=== PATIENT | female | born 1955 | race Caucasian/White ===

== ENCOUNTER 2017-01-26 06:31 | Inpatient (IN) ==
--- NOTE | 2017-01-25 21:52 | Discharge Summary ---
<Angelia Stein Alayna - Last Filed: 01/25/17 21:49> Date of Encounter: 01/25/17 - Discharge Diagnosis (1) Arthritis of knee, right Priority: Primary Status: Acute (2) Status post total knee replacement Priority: Primary Status: Acute Qualifiers: Laterality: right Qualified Code(s): Z96.651 - Presence of right artificial knee joint (3) COPD (chronic obstructive pulmonary disease) Priority: Secondary Status: Chronic Qualifiers: COPD type: unspecified COPD Qualified Code(s): J44.9 - Chronic obstructive pulmonary disease, unspecified (4) VIANEY (obstructive sleep apnea) Priority: Secondary Status: Chronic Comments: On CPAP (5) HTN (hypertension) Priority: Secondary Status: Chronic Qualifiers: Hypertension type: essential hypertension Qualified Code(s): I10 - Essential (primary) hypertension (6) DMII (diabetes mellitus, type 2) Priority: Secondary Status: Chronic Qualifiers: Diabetes mellitus complication status: without complication Diabetes mellitus intermediate project manager insulin use: unspecified detention insulin use status Qualified Code(s): E11.9 - Type 2 diabetes mellitus without complications (7) Obesity Priority: Secondary Status: Chronic Qualifiers: Obesity type: due to excess calories Obesity classification: unspecified obesity classification Serious obesity comorbidity presence: unspecified whether serious comorbidity present Qualified Code(s): E66.09 - Other obesity due to excess calories (8) Atrial fibrillation Priority: Secondary Status: Chronic Qualifiers: Atrial fibrillation type: chronic Qualified Code(s): I48.2 - Chronic atrial fibrillation (9) Chronic anticoagulation Priority: Secondary Status: Chronic Comments: Takes Coumadin 5mg daily; held prior to surgery and bridged with Lovenox. Will start Lovenox/Coumadin until PT/INR therapeutic. Following PCP/Coumadin Clinic. - Discharge Medications Prescriptions: Enoxaparin [Lovenox *PHARMACY WT BASED*] 100 mg SQ Q12HR #8 syringe OxyCODONE Immed Rel [Roxicodone 5 MG] 5 mg PO Q6HR PRN #28 tablet PRN Reason: Pain Home Medications: Montelukast [Singulair] 10 mg PO HS 01/01/16 [History] Potassium Chloride [K-Tab ER] 20 meq PO DAILY PRN 01/01/16 [History] Warfarin [Coumadin] 7.5 mg PO DAILY 01/01/16 [History] dilTIAZem HCl [Diltiazem HCl] 120 mg PO TID 01/01/16 [History] metFORMIN [Glucophage] 500 mg PO BID 01/01/16 [History] Albuterol Sulfate [Proair Hfa] 2 puff IH Q4H PRN 06/16/16 [History] Budesonide/Formoterol 160/4.5 [Symbicort 160/4.5] 2 puff IH BIDR 06/16/16 [ History] Enoxaparin [Lovenox *PHARMACY WT BASED*] 100 mg SQ Q12HR #8 syringe 01/25/17 [Rx ] OxyCODONE Immed Rel [Roxicodone 5 MG] 5 mg PO Q6HR PRN #28 tablet 01/25/17 [Rx] Cholecalciferol (Vitamin D3) [Vitamin D3] 5,000 unit PO DAILY 01/26/17 [History] Cyanocobalamin (Vitamin B-12) [Vitamin B12] 1,000 mcg PO DAILY 01/26/17 [History ] Enoxaparin [Lovenox] 40 mg SQ BID 01/26/17 [History] Fluticasone Propionate Nasal [Flonase] 1 spray NS DAILY PRN 01/26/17 [History] Furosemide [Lasix] 40 mg PO BID PRN 01/26/17 [History] Metoprolol XL (24 HR) Succ [Toprol Xl] 50 mg PO BID 01/26/17 [History] Pravastatin Sodium [Pravachol] 40 mg PO DAILY 01/26/17 [History] Sertraline [Zoloft] 100 mg PO DAILY 01/26/17 [History] Allergies/Adverse Reactions: 3 Allergy/AdvReac Type Severity Reaction Status Date / Time Banana Allergy Hives Verified 01/26/17 12:33 peanut Allergy Hives Verified 01/26/17 12:33 bismuth subsalicylate AdvReac Vomiting Verified 01/26/17 12:33 [From Pepto-Bismol] codeine AdvReac Drowsy Verified 01/26/17 12:33 Primary care physician: Milton Rodriguez MD - Patient Status Disposition: Transfer Inpatient Rehab Fac Condition: Good - Discharge Instructions Follow Up With: Milton Rodriguez MD [Primary Care Provider] - - Hospital Course Hospital course: Ms. Hernandez is a 62 year old female - Time Spent with Patient Total time spent providing and/or coordinating discharge services: <RubénSnatos Aguilah - Last Filed: 01/29/17 08:02> Date of Encounter: 01/29/17 Time of Encounter: 08:01 - Discharge Diagnosis (1) Morbid obesity with BMI of 45.0-49.9, adult Priority: Secondary Status: Chronic (2) Arthritis of knee, right Priority: Primary Status: Chronic (3) Status post total knee replacement Priority: Primary Status: Acute Qualifiers: Laterality: right Qualified Code(s): Z96.651 - Presence of right artificial knee joint (4) COPD (chronic obstructive pulmonary disease) Priority: Secondary Status: Chronic Qualifiers: COPD type: unspecified COPD Qualified Code(s): J44.9 - Chronic obstructive pulmonary disease, unspecified (5) VIANEY (obstructive sleep apnea) Priority: Secondary Status: Chronic (6) HTN (hypertension) Priority: Secondary Status: Chronic Qualifiers: Hypertension type: essential hypertension Qualified Code(s): I10 - Essential (primary) hypertension (7) DMII (diabetes mellitus, type 2) Priority: Secondary Status: Chronic Qualifiers: Diabetes mellitus complication status: without complication Diabetes mellitus detention insulin use: unspecified detention insulin use status Qualified Code(s): E11.9 - Type 2 diabetes mellitus without complications (8) Atrial fibrillation Priority: Secondary Status: Chronic Qualifiers: Atrial fibrillation type: chronic Qualified Code(s): I48.2 - Chronic atrial fibrillation (9) Chronic anticoagulation Priority: Secondary Status: Chronic Primary care physician: Milton Rodriguez MD - Patient Status Functional capacity at discharge: uses cane/walker Overall status at discharge: patient is progressing back to baseline - Hospital Course Hospital course: Ms. Hernandez is a 62 year old female Status post right total knee replacement. Patient with an episode of aVR with her atrial fibrillation treated with observation. Patient had other episodes which were treated with observation doing well this morning complaints. Patient will be discharged today to rehabilitation. She received antibiotics physical therapy as per protocol. - Time Spent with Patient Total time spent providing and/or coordinating discharge services:
--- NOTE | 2017-01-26 10:17 | Physician Discharge Referral ---
ExtendedCare Referral Info Transfer To: F Provider in Charge: Provider in Charge after Transfer: PCP Institutional Level of Care: Skilled - Diagnosis (1) Arthritis of knee, right Priority: Primary Status: Acute (2) Status post total knee replacement Priority: Primary Status: Acute (3) COPD (chronic obstructive pulmonary disease) Priority: Secondary Status: Chronic (4) VIANEY (obstructive sleep apnea) Priority: Secondary Status: Chronic (5) HTN (hypertension) Priority: Secondary Status: Chronic (6) DMII (diabetes mellitus, type 2) Priority: Secondary Status: Chronic (7) Obesity Priority: Secondary Status: Chronic (8) Atrial fibrillation Priority: Secondary Status: Chronic (9) Chronic anticoagulation Priority: Secondary Status: Chronic Expected Duration of Placement: < 30 days Prognosis: Good Aware of Diagnosis: Patient Aware of Prognosis: Patient - Transfer Medications Prescriptions: OxyCODONE Immed Rel [Roxicodone 5 MG] 5 mg PO Q6HR PRN #28 tablet PRN Reason: Pain Enoxaparin [Lovenox *PHARMACY WT BASED*] 100 mg SQ Q12HR #8 syringe Home Medications: Albuterol Sulfate [Albuterol Inhaler] 2 puff IH Q4H PRN 01/01/16 [History] Montelukast [Singulair] 10 mg PO HS 01/01/16 [History] Potassium Chloride [K-Tab ER] 20 meq PO DAILY PRN 01/01/16 [History] Warfarin [Coumadin] 7 mg PO WE 01/01/16 [History] Warfarin [Coumadin] 7.5 mg PO SUMOTUTHFRSA 01/01/16 [History] dilTIAZem HCl [Diltiazem HCl] 120 mg PO TID 01/01/16 [History] metFORMIN [Glucophage] 500 mg PO BID 01/01/16 [History] Gabapentin [Neurontin] 600 mg PO TID 01/15/16 [History] Proair Hfa 06/16/16 [History] Promethazine/Dextromethorphan [Promethazine-Dm Syrup] 5 ml PO Q4H PRN #120 ml [Rx] Symbicort 160/4.5 06/16/16 [History] Mupirocin [Bactroban Oint] 1 appl TP BID #1 tube 10/23/16 [Rx] Nystatin OINT [Mycostatin] 1 appl TP BID #30 g 10/23/16 [Rx] Enoxaparin [Lovenox *PHARMACY WT BASED*] 100 mg SQ Q12HR #8 syringe 01/25/17 [Rx ] OxyCODONE Immed Rel [Roxicodone 5 MG] 5 mg PO Q6HR PRN #28 tablet 01/25/17 [Rx] Allergies/Adverse Reactions: 3 Allergy/AdvReac Type Severity Reaction Status Date / Time Banana Allergy Hives Verified 01/15/16 13:45 peanut Allergy Hives Verified 01/15/16 13:45 bismuth subsalicylate AdvReac Vomiting Verified 01/15/16 13:45 [From Pepto-Bismol] codeine AdvReac Drowsy Verified 01/15/16 13:45 - Respiratory Orders Other (CPAP at night), None Smoking Cessation: Smoking cessation has been advised. For more information, call the [facility] [employer] Quit Line at 2-935-UEHU-NOW. - Lab Orders Lab Orders: Other (include drug levels w/frequency) (PT/INR every 3 days to bridge back to Coumadin - Lovenox RX printed - to be given every 12 hours until PT/INR therapeutic 2-3.) - Ancillary Orders May use pressure relief devices daily prn, May go on JAH w/family/respon alliance party w /meds at nurse discretion PRN, May consult with Dentist, Pulverizer Feeder, Pinking Sewing Machine Operator PRN - Mobility Orders Chair, Ambulate - Rehabiliation Orders Rehab Potential: Good Rehab Orders: ROM Exercises, Evaluation for Physical Therapy, Evaluation for Occupational Therapy - Treatments Skin tear care topically daily PRN per policy List/Other: Opsite placed. Keep dressing intact until first follow up appointment. If > 50% saturated,notify offfice, remove dressing and place appropriate dressing back in place. Dressing is water resistant, not water-proof. OK to shower, but do not get dressing wet. Shan in place, to be removed at POD#14-16. PT/OT. WBAT to affected extremity. Follow Total Knee Precautions x 6 weeks. Stay in brace at night only. Plan to discontinue brace after first post- operative appointment. ICE and elevate extremity frequently throughout the day. Encourage ambulation exercises. Incentive Spirometer 10x/hour x 1 week. Bridge back to Coumadin - Repeat INR every 3 days. CPAP at night for VIANEY - Diet Orders Regular CERTIFICATION: I certify that the transfer of the above named patient to an Extended Care Facility is necessary for the continuing treatment of the diagnosis listed. The above information is true and accurate reflection of patient's current condition. Confidential - Redisclosure prohibited without a patient's written consent.
--- NOTE | 2017-01-26 11:57 | History & Physical Report ---
Date of Encounter: 01/26/17 Time of Encounter: 11:56 24 Hour HP Update - Instructions Instructions: If the History and Physical is less than 30 days old and was completed prior to A.M. admission and or procedure and has NOT been updated on calendar day of procedure please complete this update prior to performing procedure. - Update Patient reports changes in Medical Condition: No Changes in examination, assessment, or condition: No Changes in Medication: No Preop tests/diagnostics Reviewed: Yes Surgery Remains Indicated: Yes Consent for Planned Operative Procedure(s) Verified: Yes - Pre-Operative Checklist Preoperative Checklist Indicated: No Prophylactic Antibiotic Ordered: Yes Is VTE Prophylaxis Indicated?: Yes
[2017-01-26] MEDS ORDERED: Ringers Solution, Lactated 1,000 ML IVC SCH ×3 (12:15→20:35)
[2017-01-26] MEDS ORDERED: CeFAZolin Pre 3,000 MG/100 ML 3,000 MG/100 ML BAG IVPB ONE (12:17)
[2017-01-26] MEDS ORDERED: Albuterol 2.5 MG/3 ML NEBULIZER IH ONE ×2 (12:17→16:37)
--- NOTE | 2017-01-26 15:00 | Anesthesia Evaluation PreOp ---
Date of Encounter: 01/26/17 Time of Encounter: 14:57 - Past History Planned Operation: Right Total Knee Cardiac History: HTN, Hyperlipidemia, Arrhythmia (AFib - stopped coumadin 2016), Other (CAD) Pulmonary History: Former smoker (quit 8 Years ago), Asthma, COPD (not on home O2) COMMUNICATIONS PROFESSIONAL History: Denies Any Significant HX Other Medical History: Diabetes Type II, Other (Morbid Obesity BMI-46.3) Anesthesia History: No Prior Anesthetic Complications, Past Anesthesia (Left Ulnar Nerve Decompression, Left Endo CTR) : No Alcohol Use: none Drug use: none Medications and Allergies Montelukast [Singulair] 10 mg PO HS 01/01/16 [History] Potassium Chloride [K-Tab ER] 20 meq PO DAILY PRN 01/01/16 [History] Warfarin [Coumadin] 7.5 mg PO DAILY 01/01/16 [History] dilTIAZem HCl [Diltiazem HCl] 120 mg PO TID 01/01/16 [History] metFORMIN [Glucophage] 500 mg PO BID 01/01/16 [History] Albuterol Sulfate [Proair Hfa] 2 puff IH Q4H PRN 06/16/16 [History] Budesonide/Formoterol 160/4.5 [Symbicort 160/4.5] 2 puff IH BIDR 06/16/16 [ History] Enoxaparin [Lovenox *PHARMACY WT BASED*] 100 mg SQ Q12HR #8 syringe 01/25/17 [Rx ] OxyCODONE Immed Rel [Roxicodone 5 MG] 5 mg PO Q6HR PRN #28 tablet 01/25/17 [Rx] Cholecalciferol (Vitamin D3) [Vitamin D3] 5,000 unit PO DAILY 01/26/17 [History] Cyanocobalamin (Vitamin B-12) [Vitamin B12] 1,000 mcg PO DAILY 01/26/17 [History ] Enoxaparin [Lovenox] 40 mg SQ BID 01/26/17 [History] Fluticasone Propionate Nasal [Flonase] 1 spray NS DAILY PRN 01/26/17 [History] Furosemide [Lasix] 40 mg PO BID PRN 01/26/17 [History] Metoprolol XL (24 HR) Succ [Toprol Xl] 50 mg PO BID 01/26/17 [History] Pravastatin Sodium [Pravachol] 40 mg PO DAILY 01/26/17 [History] Sertraline [Zoloft] 100 mg PO DAILY 01/26/17 [History] 3 Allergy/AdvReac Type Severity Reaction Status Date / Time Banana Allergy Hives Verified 01/26/17 12:33 peanut Allergy Hives Verified 01/26/17 12:33 bismuth subsalicylate AdvReac Vomiting Verified 01/26/17 12:33 [From Pepto-Bismol] codeine AdvReac Drowsy Verified 01/26/17 12:33 - Meds/Allergy Pre-op Review Medications Reviewed: Yes Allergies Reviewed: Yes Beta Blockers on Current Med List: Yes If Beta Blockers taken, Date/Time (Last Dose taken): 06:30 01/26/2017 Anesthesia Results - Labs Echo with Imaging Enhancement Agent Name: Cleo Hernandez Date of Study: 04/25/2015 Impressions: Atrial fibrillation. LVEF 55%. Grossly normal left ventricular structure and function. Indeterminate diastolic function. Normal right ventricular structure and function. Moderate dilated left atrium. Mild to moderately dilated right atrium. No evidence of pulmonary hypertension. RVSP was not well obtained. Anesthesia Exam O2 Sat Height 1.63 m Height 1.63 m Height 1.63 m Weight 122.47 kg Weight 122.47 kg Weight 122.47 kg O2 Sat by Pulse Oximetry 96 Vital Signs Temp Pulse Resp BP Pulse Ox 98.1 F 110 18 149/100 96 01/26/17 12:15 01/26/17 12:15 01/26/17 12:15 01/26/17 12:15 01/26/17 12:15 Vital Signs/O2 Sat, Most Current Temp Pulse Resp BP Pulse Ox 98.1 F 67 22 133/67 94 01/26/17 12:15 01/26/17 15:10 01/26/17 15:10 01/26/17 15:10 01/26/17 15:10 Blood glucose: 145 Height: 5'4'' Weight: 270# NPO (# of Hours): pt at @ 09:00 Delay until 17:00 - HEENT Pupil (Motor): Pupils equal, EOMI Mallampati: II Teeth: Missing Denture Type: Upper: Complete Oral Opening: Greater than 3 - COMMUNICATIONS PROFESSIONAL LOC: Oriented COMMUNICATIONS PROFESSIONAL Motor: Normal RUE, Normal LUE, Normal RLE, Normal LLE, Normal Face COMMUNICATIONS PROFESSIONAL Sensory: Normal: RUE, LUE, RLE, LLE, Face - Cardiac Rhythm: Irregular Murmur: None JVD: No Carotid Bruit: No - Pulmonary Breath Sounds: bilateral Clear Respiratory Effort: Symmetrical Anesthesia Assess/Plan ASA Score: 3 Modified Jal Scale for Level of Consciousness: Cooperative, oriented, and tranquil Anesthetic Plan: General, Regional (Right Fem. Nerve Block) Autologous Blood: Yes Monitoring Plan: Standard Monitors Recovery Plan: PACU
[2017-01-26] MEDS ORDERED: *HR* FentaNYL (PF) 100 MCG/2 ML VIAL ONE (16:23)
[2017-01-26] MEDS ORDERED: *HR* Midazolam HCl 2 MG/2 ML VIAL ONE ×3 (16:23→19:37)
[2017-01-26] MEDS ORDERED: *HR* Propofol 200 MG/20 ML VIAL IVP ONE (16:24)
[2017-01-26] MEDS ORDERED: Lidocaine -MPF 2% 2 ML VIAL ONE (16:25)
[2017-01-26] MEDS ORDERED: Lidocaine -MPF 4% 5 ML AMPUL ONE (16:26)
[2017-01-26] MEDS ORDERED: ROPIVACAINE HCL/PF 0.5% 30 ML VIAL ONE (16:28)
[2017-01-26] MEDS ORDERED: Bupivacaine/Clonidine Syringe 1 EACH SYRINGE ONE (16:28)
[2017-01-26] MEDS ORDERED: Ethanol\\Acetic Acid\\Na Ace\\Ben 1,000 ML IRRIG.SOLN IR ONE (16:30)
[2017-01-26] MEDS ORDERED: Ondansetron 4 MG/2 ML VIAL IVP ONE (16:37)
[2017-01-26] MEDS ORDERED: *HR* Labetalol 20 MG/4 ML SYRINGE IVP PRN (16:37)
[2017-01-26] MEDS ORDERED: *HR* Meperidine 25 MG/ML SYRINGE IVP PRN (16:37)
[2017-01-26] MEDS ORDERED: Naloxone 0.4 MG/ML INJ IVP PRN ×2 (16:37→20:35)
--- NOTE | 2017-01-26 17:00 | Anesthesia Procedures ---
Date of Encounter: 01/26/17 Time of Encounter: 16:58 Procedures: Anesthesia - Nerve Block Procedure Date: 01/26/17 Time: 16:58 Pre-op Diagnosis: right knee oa Surgical Procedure: right tka Checklist: Correct Patient Identifier, Correct procedure, History checked Correct side: Right Blood Thinner: No Monitor Applied: EKG, BP, Pulse Oximetry Supplemental Oxygen via Nasal Cannula (L/min): 2 Sedation: Versed (mg): 4 Sedation: Fentanyl (mcg): 100 Indication: Post Op Analgesia (request per dr payne for post op pain control) Pre-op Neuro Deficits: No Block Type: Femoral, Other (ipack) Catheter placed: No Sterile Technique: Yes Ultrasound used: Yes Anatomy identified: Yes Visual spread of Local: Yes Neuro Stimulation: Yes Nerve Stimulator Range: >0.4 - 0.6 mA Blood on Needle Aspiration: No Smooth Injection of Local: Yes Pain with Injection of Local: No Prep: Chlorhexadine Needle: 22 x 50 mm Stimuplex Local: 0.25% Bupivicaine w/Clonidine 20 mcg/cc (femoral), Ropivacaine (ipack) Volume (cc): 30 Number of Attempts: 1 Complications: None/effective block Vitals: Vital Signs/O2 Sat/Glucose, Most Current Pulse Resp BP Pulse Ox 01/26/17 16:42 119 18 149/123 99 01/26/17 15:10 67 22 133/67 94
[2017-01-26] MEDS ORDERED: Ondansetron 4 MG/2 ML VIAL ONE (17:30)
[2017-01-26] MEDS ORDERED: Dexamethasone 4 MG/ML VIAL ONE (17:30)
[2017-01-26] MEDS ORDERED: *HR* HYDROmorphone 2 MG/ML SYRINGE ONE (17:36)
[2017-01-26] MEDS ORDERED: *HR* Enoxaparin 30 MG/0.3 ML SYRINGE SQ SCH (18:00)
--- NOTE | 2017-01-26 18:04 | Orthopedic Operative Note ---
Date of procedure: 01/26/17 Pre-op diagnosis: Right knee arthritis Post-op diagnosis: same Procedure: Procedure: Right Total knee replacement Estimated blood loss: 200 cc Hardware: Metal and polyethylene replacement. Arthrex Femur: 4 Tibia: 4 PS insert: 18 Patella: 37 Exam Under anesthesia: Full flexion and extension, no instability Procedural Notes: Grade 4 arthritic changes all 3 compartments. Operative procedure: The patient was brought to the operating room and placed on the operating room table. After general anesthesia was administered the operative knee was examined. Findings were noted in the exam under anesthesia. The operative extremity was prepped and draped in sterile surgical fashion. The patient received IV antibiotics prior to skin incision. A standard midline incision was made centered over the patella. The incision was made through the skin and subcutaneous tissue. A medial parapatellar tendon approach was performed. Care was taken to preserve tissue along the medial aspect of the patella. And to protect the patella tendon. The deep MCL was released off the medial tibia. The infra patella fat pad was excised. Knee was brought into flexion. Patient noted to have grade 4 arthritic changes all 3 compartments. The entry hole was made for the intramedullary femoral guide. The guide was seated in 6 degrees of valgus. Anterior cut was made followed by the distal cut. The ACL the PCL the medial and the lateral menisci were excised. The tibia was subluxed forward. The entry hole was made for the intramedullary tibial guide. Guide was seated to resect 2 mm off the more abnormal side. The knee was brought into flexion the distal femur was sized to a 4. The femoral guide was seated, the anterior cut was made followed by the posterior condylar cut, followed by the chamfer cuts. The finishing guide was seated the box cut was made and the lug holes were drilled. The tibia was sized to a 4, the tibial tray was seated and prepared with the large drill followed by the fin cutter. Trial reduction revealed full extension no varus valgus instability with the appropriate 18 PS Sosa. The patella was everted and cut was made at the level of the insertion of the quadriceps and patella tendon. The patella was sized 37 the guide was seated and the lug holes are drilled. Trial reduction revealed excellent patella tracking. All trial components were removed all bony surfaces were irrigated. The tibia was cemented first followed by the femur. The 18 PS Sosa was seated and the knee was brought into full extension. The patella was cemented and held in place with the patellar holding clamp. After the cement had hardened, the knee sat for 2 minutes with a Betadine saline solution. The PA closed the knee. The knee was then irrigated out with 2 L of pulse irrigation. The extensor mechanism was closed with #2 FiberWire suture and #2 PDS suture. The subcutaneous tissue was then irrigated and closed deep with #1 PDS suture superficially with 0 PDS suture and skin was closed with skin alethea. The patient was then placed in a sterile dressing and a postoperative brace extubated and transferred to recovery room in stable condition. Anesthesia: LURDES Surgeon: Santos [place] Condition: stable Disposition: PACU
[2017-01-26] MEDS: *HR* HYDROmorphone (PF) 1 MG/ML SYRINGE IVP PRN ×2 (18:49→18:55)
[2017-01-26 19:07] LABS: Hematocrit 38.6 % (35.3-44.9)
[2017-01-26 19:12] LABS: INR 1.2; Prothrombin Time 12.7 Seconds (9.4-12.1)
[2017-01-26] MEDS ORDERED: *HR* Midazolam HCl 2 MG/2 ML VIAL IVP ONE (19:55)
--- NOTE | 2017-01-26 20:02 | Anesthesia Evaluation Post Op ---
Date of Encounter: 01/26/17 Time of Encounter: 19:59 - Vital Signs Vital Signs: Vital Signs/O2 Sat, Most Current Temp Pulse Resp BP Pulse Ox 98.6 F 106 16 110/91 96 01/26/17 19:33 01/26/17 19:53 01/26/17 19:53 01/26/17 19:53 01/26/17 19:53 - Lungs Lungs: Clear Ascult./Percussion - Airway Airway: Non-obstructed - Cardiovascular Irregular Rate (atrial fib, same as preop) - Mental Status Mental Status: Alert & Oriented, Answers Appropriately - Pain Pain Scale: 3 (dilaudid 1mg) Pain Scale used: Numeric (1 - 10) - Nausea Vomiting Nausea Vomiting: Not Present - Hydration Hydration: Ice chips Notes: 01/26/17 19:59 c/o of numb throat, likely from lta used during intubation, VSS othewise, - Discharge PostOp Status: Transfer Patient to floor (VSS, awake, stable)
[2017-01-26] MEDS ORDERED: Sennosides 8.6 MG TABLET PO PRN (20:35)
[2017-01-26] MEDS ORDERED: Furosemide 40 MG TABLET PO PRN (20:35)
[2017-01-26] MEDS ORDERED: Dextrose Gel 15 GM PO PRN ×2 (20:35)
[2017-01-26] MEDS ORDERED: Temazepam 15 MG CAPSULE PO PRN (20:35)
[2017-01-26] MEDS ORDERED: *HR* OxyCODONE Immed Rel 5 MG TABLET PO PRN (20:35)
[2017-01-26] MEDS ORDERED: D5% in Water 1,000 ML IVC PRN (20:35)
[2017-01-26] MEDS ORDERED: Fluticasone Propionate Nasal 50 MCG/SPRAY BOTTLE NS PRN (20:35)
[2017-01-26] MEDS ORDERED: Ondansetron 4 MG/2 ML VIAL IVP PRN (20:35)
[2017-01-26] MEDS ORDERED: *HR* Dextrose 50 % in Water (Syg) 50 ML SYRINGE IVP PRN (20:35)
[2017-01-26] MEDS ORDERED: MOM Conc 10 ML UD.LIQ PO PRN (20:35)
[2017-01-26] MEDS: *HR* Warfarin 7.5 MG TABLET PO SCH (21:28)
[2017-01-26] MEDS: Metoprolol XL (24 HR) Succ 50 MG TAB.ER.24H PO SCH (21:36)
[2017-01-26] MEDS: *HR* Metformin 500 MG TABLET PO SCH (21:37)
[2017-01-26] MEDS: *HR* OxyCODONE Immed Rel 5 MG TABLET PO PRN (21:37)
[2017-01-26] MEDS: Insulin LISPRO 300 UNITS/3 ML VIAL SQ SCH ×2 (21:38)
[2017-01-26] MEDS: Budesonide/Formoterol 160/4.5 MDI IH SCH (21:55)
[2017-01-27] MEDS: ceFAZolin 2,000 MG in D5% in Water 100 ML IVPB SCH ×2 (00:35→09:00)
[2017-01-27] MEDS: *HR* HYDROmorphone (PF) 1 MG/ML SYRINGE IVP PRN ×5 (00:44→21:24)
[2017-01-27] MEDS: *HR* OxyCODONE Immed Rel 5 MG TABLET PO PRN ×3 (03:50→23:31)
[2017-01-27] MEDS: *HR* Enoxaparin 30 MG/0.3 ML SYRINGE SQ SCH ×2 (06:20→16:44)
--- NOTE | 2017-01-27 06:38 | Orthopedics Progress Note ---
Date of Encounter: 01/27/17 Time of Encounter: 06:38 - Assessment and Plan (1) Morbid obesity with BMI of 45.0-49.9, adult Current Visit: Yes Status: Chronic (2) Arthritis of knee, right Current Visit: No Status: Chronic (3) Status post total knee replacement Current Visit: No Status: Acute Qualifiers: Laterality: right Qualified Code(s): Z96.651 - Presence of right artificial knee joint (4) COPD (chronic obstructive pulmonary disease) Current Visit: No Status: Chronic Qualifiers: COPD type: unspecified COPD Qualified Code(s): J44.9 - Chronic obstructive pulmonary disease, unspecified (5) VIANEY (obstructive sleep apnea) Current Visit: No Status: Chronic (6) HTN (hypertension) Current Visit: No Status: Chronic Qualifiers: Hypertension type: essential hypertension Qualified Code(s): I10 - Essential (primary) hypertension (7) DMII (diabetes mellitus, type 2) Current Visit: No Status: Chronic Qualifiers: Diabetes mellitus complication status: without complication Diabetes mellitus [facility]p insulin use: unspecified termination clerk insulin use status Qualified Code(s): E11.9 - Type 2 diabetes mellitus without complications (8) Atrial fibrillation Current Visit: No Status: Chronic Qualifiers: Atrial fibrillation type: chronic Qualified Code(s): I48.2 - Chronic atrial fibrillation (9) Chronic anticoagulation Current Visit: No Status: Chronic Subjective Interval history: Patient was seen this morning doing well without complaints. Patient with episode of atrial fibrillation with RVR asymptomatic we will continue to monitor Afebrile vital signs stable. Operative extremity: Neurovascularly intact Dressing clean dry and intact Calves nontender Assessment and plan: Continue with postoperative care Hematocrit 38 Objective Vital signs: Vital Signs Temp Pulse Resp BP Pulse Ox 01/27/17 04:29 98.3 F 125 18 102/71 99 01/27/17 00:49 125/82 01/26/17 23:16 98 F 115 16 95/67 98 01/26/17 22:12 98 F 104 16 107/59 96 01/26/17 22:01 16 96 01/26/17 21:45 97.6 F 105 16 117/84 97 01/26/17 20:58 98.4 F 113 16 122/74 93 01/26/17 20:32 98.2 F 102 15 125/69 95 01/26/17 20:03 98.6 F 121 16 105/89 95 01/26/17 19:53 106 16 110/91 96 01/26/17 19:43 121 20 120/80 93 01/26/17 19:33 98.6 F 117 20 115/83 96 01/26/17 19:23 132 14 131/54 94 01/26/17 19:13 136 20 126/73 96 01/26/17 19:03 98.9 F 105 12 119/82 94 01/26/17 18:53 112 14 117/85 96 01/26/17 18:43 136 16 118/79 95 01/26/17 18:33 99.2 F 113 18 127/71 98 01/26/17 17:15 98 18 115/78 98 01/26/17 17:00 96 18 137/96 96 01/26/17 16:42 119 18 149/123 99 01/26/17 15:10 67 22 133/67 94 01/26/17 12:15 98.1 F 110 18 149/100 96 Intake and Output 01/26/17 01/26/17 01/27/17 15:59 23:59 07:59 Intake Total 100 / 100 100 / 100 Output Total 200 / 200 200 / 200 Balance -100 / -100 -100 / -100 Intake: IV Fluids 100 / 100 100 / 100 Ancef Premix 3,000 MG/100 ML 3, 100 / 100 000 mg In 100 ml @ 200 mls/hr IVPB PREOP ONE Rx#:[id number] Ancef 2,000 MG In Dextrose 5% 100 / 100 100 ML @ 200 mls/hr IVPB Q8H [facility] Rx#:[id number] Output: Urine 0 / 0 200 / 200 Estimated Blood Loss 200 / 200 Other: Weight 122.47 kg 123.377 kg Blood Glucose* 145 212 Patient Weight 01/27/17 23:59 Weight 123.377 kg - Labs CBC & BMP: 01/26/17 18:55 Labs: Abnormal lab results PT 12.7 Seconds (9.4-12.1) H 01/26/17 18:55 POC Glucose 212 (58-89) H 01/26/17 20:59 - VTE Documentation of Mechanical Device: Venous foot pump, device Consult Discharge Plan - Plan Referrals: Milton Rodriguez MD [Primary Care Provider] - Prescriptions: Enoxaparin [Lovenox *PHARMACY WT BASED*] 100 mg SQ Q12HR #8 syringe OxyCODONE Immed Rel [Roxicodone 5 MG] 5 mg PO Q6HR PRN #28 tablet PRN Reason: Pain
[2017-01-27 06:44] LABS: BUN/Creatinine Ratio 21 (6-26); Blood Urea Nitrogen 21 mg/dL (7-20); Calcium 9.1 mg/dL (8.6-10.8); Carbon Dioxide 23 mEq/L (19-29); Chloride 104 mEq/L (98-109); Glucose 174 mg/dL (70-99); Osmolality,Calculated 289 (280-300); Potassium 4.8 mEq/L (3.5-4.5); Sodium 136 mEq/L (136-145); eGFR For African Americans > 60 (> 60); eGFR For Non-African Americans 56 (> 60)
[2017-01-27 06:54] LABS: Hematocrit 36.9 % (35.3-44.9); Hemoglobin 11.7 g/dL (11.5-15.4)
[2017-01-27] MEDS: Insulin LISPRO 300 UNITS/3 ML VIAL SQ SCH ×4 (08:55→21:24)
[2017-01-27] MEDS: Cyanocobalamin (B-12) 1,000 MCG TABLET PO SCH (08:56)
[2017-01-27] MEDS: Metoprolol XL (24 HR) Succ 50 MG TAB.ER.24H PO SCH ×2 (08:56→21:24)
[2017-01-27] MEDS: *HR* Warfarin 7.5 MG TABLET PO SCH (08:56)
[2017-01-27] MEDS: Cholecalciferol (D-3) 1,000 UNIT TABLET PO SCH (08:56)
[2017-01-27] MEDS: *HR* Metformin 500 MG TABLET PO SCH ×2 (08:56→21:24)
[2017-01-27] MEDS: Budesonide/Formoterol 160/4.5 MDI IH SCH ×2 (10:57→21:50)
--- NOTE | 2017-01-27 11:46 | Event Note ---
Date of Encounter: 01/27/17 Time of Encounter: 11:43 PCR - Right TKR 01/27 POD#.1 Comorbidities: COPD - CPAP, VIANEY, HTN, DMII, Obesity, A.fib - Chronic anticoagulation on Coumadin; CKD III Labs: 01/27 - H/H - stable PT/INR - repeat 01/28 Patient seen at bedside. Pain control: adequate Participating in PT. All questions and concerns addressed. Educated on use of incentive spirometer, ambulation, and hydration. Patient educated on post-operative restrictions and care. Addressed: CPAP at night A.Fib - rate 90-130 - no sustained tachycardia. On Telemetry. Asymptomatic On O2 - 1.5 liters, weaned down from 3 Liters. D/C plan: [facility] - Need Coumadin Bridge with wt based Lovenox - RX printed; repeat PT/INR prior to D/C
--- NOTE | 2017-01-27 17:45 | Electrocardiograph Report ---
[address] [address] Test Date: 2017-01-27 Pat Name: Cleo Hernandez Department: 114 Room: 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
[2017-01-28] MEDS: *HR* Enoxaparin 30 MG/0.3 ML SYRINGE SQ SCH ×2 (05:19→16:20)
[2017-01-28] MEDS: *HR* OxyCODONE Immed Rel 5 MG TABLET PO PRN ×3 (05:20→17:41)
[2017-01-28 05:57] LABS: Hematocrit 32.4 % (35.3-44.9); Hemoglobin 10.2 g/dL (11.5-15.4)
[2017-01-28 06:02] LABS: INR 1.2; Prothrombin Time 13.1 Seconds (9.4-12.1)
[2017-01-28 06:10] LABS: BUN/Creatinine Ratio 22 (6-26); Blood Urea Nitrogen 20 mg/dL (7-20); Calcium 8.8 mg/dL (8.6-10.8); Carbon Dioxide 26 mEq/L (19-29); Chloride 103 mEq/L (98-109); Glucose 138 mg/dL (70-99); Osmolality,Calculated 285 (280-300); Potassium 4.3 mEq/L (3.5-4.5); Sodium 135 mEq/L (136-145); eGFR For African Americans > 60 (> 60); eGFR For Non-African Americans > 60 (> 60)
--- NOTE | 2017-01-28 08:04 | Orthopedics Progress Note ---
Date of Encounter: 01/28/17 Time of Encounter: 08:03 - Assessment and Plan (1) Morbid obesity with BMI of 45.0-49.9, adult Current Visit: Yes Status: Chronic (2) Arthritis of knee, right Current Visit: No Status: Chronic (3) Status post total knee replacement Current Visit: No Status: Acute Qualifiers: Laterality: right Qualified Code(s): Z96.651 - Presence of right artificial knee joint (4) COPD (chronic obstructive pulmonary disease) Current Visit: No Status: Chronic Qualifiers: COPD type: unspecified COPD Qualified Code(s): J44.9 - Chronic obstructive pulmonary disease, unspecified (5) VIANEY (obstructive sleep apnea) Current Visit: No Status: Chronic (6) HTN (hypertension) Current Visit: No Status: Chronic Qualifiers: Hypertension type: essential hypertension Qualified Code(s): I10 - Essential (primary) hypertension (7) DMII (diabetes mellitus, type 2) Current Visit: No Status: Chronic Qualifiers: Diabetes mellitus complication status: without complication Diabetes mellitus correction insulin use: unspecified long term care 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 No complaints overnight with regards to atrial fibrillation. Afebrile vital signs stable. Operative extremity: Neurovascularly intact Dressing clean dry and intact Calves nontender Assessment and plan: Continue with postoperative care Hematocrit 32 discharge when placement established. Objective Vital signs: Vital Signs Temp Pulse Resp BP Pulse Ox 01/28/17 06:49 98.4 F 91 16 104/58 96 01/28/17 03:49 98.3 F 94 16 101/69 96 01/28/17 00:18 98.3 F 100 18 98/57 100 01/27/17 21:54 16 94 01/27/17 19:25 98.7 F 113 20 105/65 98 01/27/17 15:33 98.5 F 116 20 116/71 98 01/27/17 11:08 98.1 F 100 16 119/76 95 01/27/17 11:05 16 98 Intake and Output 01/27/17 01/28/17 01/28/17 23:59 07:59 15:59 Output Total 100 / 100 Balance -100 / -100 Output: Urine 100 / 100 Other: Stool Size Small Stool Consistency formed Stool Characteristics Normal for Patient Stool Color Brown # Voids 1 1 # Bowel Movements 1 Weight 124.63 kg Blood Glucose* 121 157 Patient Weight 01/28/17 23:59 Weight 124.63 kg - Labs CBC & BMP: 01/28/17 05:38 01/28/17 05:38 Labs: Abnormal lab results Hgb 10.2 g/dL (11.5-15.4) L D 01/28/17 05:38 Hct 32.4 % (35.3-44.9) L 01/28/17 05:38 PT 13.1 Seconds (9.4-12.1) H 01/28/17 05:38 Sodium 135 mEq/L (136-145) L 01/28/17 05:38 Glucose 138 mg/dL (70-99) H 01/28/17 05:38 POC Glucose 121 (58-89) H 01/27/17 20:10 - VTE Documentation of Mechanical Device: Venous foot pump, device Consult Discharge Plan - Plan Referrals: Milton Rodriguez MD [Primary Care Provider] - Prescriptions: Enoxaparin [Lovenox *PHARMACY WT BASED*] 100 mg SQ Q12HR #8 syringe OxyCODONE Immed Rel [Roxicodone 5 MG] 5 mg PO Q6HR PRN #28 tablet PRN Reason: Pain
[2017-01-28] MEDS: Cholecalciferol (D-3) 1,000 UNIT TABLET PO SCH (08:20)
[2017-01-28] MEDS: Cyanocobalamin (B-12) 1,000 MCG TABLET PO SCH (08:20)
[2017-01-28] MEDS: *HR* Warfarin 7.5 MG TABLET PO SCH (08:21)
[2017-01-28] MEDS: *HR* Metformin 500 MG TABLET PO SCH ×2 (08:22→21:29)
[2017-01-28] MEDS: Metoprolol XL (24 HR) Succ 50 MG TAB.ER.24H PO SCH ×2 (08:22→21:29)
[2017-01-28] MEDS: Insulin LISPRO 300 UNITS/3 ML VIAL SQ SCH ×4 (08:25→21:33)
[2017-01-28] MEDS: Budesonide/Formoterol 160/4.5 MDI IH SCH ×2 (10:27→20:48)
[2017-01-28] MEDS: *HR* HYDROmorphone (PF) 1 MG/ML SYRINGE IVP PRN ×2 (13:02→21:29)
--- NOTE | 2017-01-28 19:38 | Event Note ---
Date of Encounter: 01/28/17 Time of Encounter: 11:35 PCR - Right TKR 01/27 POD#.2 Comorbidities: COPD - CPAP, VIANEY, HTN, DMII, Obesity, A.fib - Chronic anticoagulation on Coumadin; CKD III Labs: 01/27 - H/H - stable; PT/INR - repeat 01/28 01/28 H/H 10.2/34.4; BG 138; PT/INR 13.1/1.2 Patient seen at bedside. Pain control: adequate All questions and concerns addressed. Educated on use of incentive spirometer, ambulation, and hydration. Patient had errantly been instructed to stay in bed by nursing staff, patient to participate in PT. patient verbalized understanding of need for PT. Patient educated on post-operative restrictions and care. Addressed: CPAP at night - patient continues not to use CPAP despite recommendations to use anytime she lays down to rest. A.Fib - 01/28 rate 90-107 - patient stable, on tele, asymptomatic 01/27 rate 90-130 - no sustained tachycardia. On Telemetry. Asymptomatic On O2 only as needed - increasing patient's activity is decreasing O2 demands. On 01/27 she was weaned down to 1.5L from 3L. Educated patient on need for physical activity to get her weaned off the oxygen. Patient verbalized understanding. D/C plan: [facility] - Need Coumadin Bridge with wt based Lovenox - RX printed ready for discharge; repeat PT/INR prior to D/C
[2017-01-29] MEDS: *HR* OxyCODONE Immed Rel 5 MG TABLET PO PRN ×4 (04:17→21:53)
[2017-01-29] MEDS: *HR* Enoxaparin 30 MG/0.3 ML SYRINGE SQ SCH ×2 (06:05→17:21)
--- NOTE | 2017-01-29 08:03 | Orthopedics Progress Note ---
Date of Encounter: 01/29/17 Time of Encounter: 08:02 - Assessment and Plan (1) Morbid obesity with BMI of 45.0-49.9, adult Current Visit: Yes Status: Chronic (2) Arthritis of knee, right Current Visit: No Status: Chronic (3) Status post total knee replacement Current Visit: No Status: Acute Qualifiers: Laterality: right Qualified Code(s): Z96.651 - Presence of right artificial knee joint (4) COPD (chronic obstructive pulmonary disease) Current Visit: No Status: Chronic Qualifiers: COPD type: unspecified COPD Qualified Code(s): J44.9 - Chronic obstructive pulmonary disease, unspecified (5) VIANEY (obstructive sleep apnea) Current Visit: No Status: Chronic (6) HTN (hypertension) Current Visit: No Status: Chronic Qualifiers: Hypertension type: essential hypertension Qualified Code(s): I10 - Essential (primary) hypertension (7) DMII (diabetes mellitus, type 2) Current Visit: No Status: Chronic Qualifiers: Diabetes mellitus complication status: without complication Diabetes mellitus residential insulin use: unspecified 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 No complaints overnight with regards to atrial fibrillation. Afebrile vital signs stable. Operative extremity: Neurovascularly intact Dressing clean dry and intact Calves nontender Assessment and plan: Continue with postoperative care discharge today Objective Vital signs: Vital Signs Temp Pulse Resp BP Pulse Ox 01/29/17 06:30 98.4 F 87 16 109/63 96 01/29/17 03:46 98.7 F 82 16 105/56 95 01/28/17 23:43 98.1 F 93 16 102/69 95 01/28/17 21:59 99.6 F 115 14 115/67 95 01/28/17 20:48 19 96 01/28/17 19:58 99.3 F 108 20 97/61 95 01/28/17 15:36 98.4 F 107 16 120/64 96 01/28/17 11:19 98.7 F 91 15 125/78 97 01/28/17 10:29 18 95 01/28/17 10:21 91 16 104/58 96 Intake and Output 01/28/17 01/29/17 01/29/17 23:59 07:59 15:59 Intake Total 100 / 100 Output Total 325 / 325 475 / 475 Balance -225 / -225 -475 / -475 Intake: Oral 100 / 100 Output: Urine 325 / 325 475 / 475 Other: Meal Dinner Percent of Meal Consumed 25% # Voids 1 Weight 123.967 kg Blood Glucose* 128 131 Patient Weight 01/29/17 23:59 Weight 123.967 kg - Labs CBC & BMP: 01/28/17 05:38 01/28/17 05:38 Labs: Abnormal lab results Hgb 10.2 g/dL (11.5-15.4) L D 01/28/17 05:38 Hct 32.4 % (35.3-44.9) L 01/28/17 05:38 PT 13.1 Seconds (9.4-12.1) H 01/28/17 05:38 Sodium 135 mEq/L (136-145) L 01/28/17 05:38 Glucose 138 mg/dL (70-99) H 01/28/17 05:38 POC Glucose 128 (58-89) H 01/28/17 20:03 - VTE Documentation of Mechanical Device: Venous foot pump, device Consult Discharge Plan - Plan Referrals: Milton Rodriguez MD [Primary Care Provider] - Prescriptions: Enoxaparin [Lovenox *PHARMACY WT BASED*] 100 mg SQ Q12HR #8 syringe OxyCODONE Immed Rel [Roxicodone 5 MG] 5 mg PO Q6HR PRN #28 tablet PRN Reason: Pain
[2017-01-29] MEDS: Insulin LISPRO 300 UNITS/3 ML VIAL SQ SCH ×4 (09:30→21:53)
[2017-01-29] MEDS: Metoprolol XL (24 HR) Succ 50 MG TAB.ER.24H PO SCH ×2 (09:42→21:53)
[2017-01-29] MEDS: Cyanocobalamin (B-12) 1,000 MCG TABLET PO SCH (09:42)
[2017-01-29] MEDS: *HR* Metformin 500 MG TABLET PO SCH ×2 (09:42→21:53)
[2017-01-29] MEDS: Cholecalciferol (D-3) 1,000 UNIT TABLET PO SCH (09:42)
[2017-01-29 10:04] LABS: Hematocrit 31.5 % (35.3-44.9); Hemoglobin 10.2 g/dL (11.5-15.4)
[2017-01-29 10:17] LABS: INR 1.6; Prothrombin Time 17.1 Seconds (9.4-12.1)
[2017-01-29] MEDS: Budesonide/Formoterol 160/4.5 MDI IH SCH ×2 (10:49→20:32)
[2017-01-29] MEDS: *HR* Warfarin 7.5 MG TABLET PO SCH (11:35)
--- NOTE | 2017-01-29 12:57 | Event Note ---
Date of Encounter: 01/29/17 Time of Encounter: 13:00 PCR - Right TKR 01/27 POD#3 Comorbidities: COPD - CPAP, VIANEY, HTN, DMII, Obesity, A.fib - Chronic anticoagulation on Coumadin; CKD III Labs: 01/27 - H/H - stable; PT/INR - repeat 01/28 10 H/H 10.2/34.4; BG 138; PT/INR 13.1/1.2 01/29 H/H 10.2/31.5 PT/INR 17.1/1.6 Patient seen at bedside. Male present in room with patient. Pain control: adequate. Lidocaine patches ordered to aid with controlling local pain. All questions and concerns addressed. Educated on use of incentive spirometer, ambulation, and hydration. Patient had errantly been instructed to stay in bed by unknown source, patient to participate in PT. Patient verbalized understanding of need for PT. Patient continued to refuse participation in PT up to this point. Educated patient that if she does not participate in PT and meet benchmarks with regard to ambulation and independency then she will not be able to go to [place] for rehab as has been the plan. She verbalizes understanding. Patient educated on post-operative restrictions and care. Addressed: CPAP at night - patient continues not to use CPAP despite recommendations to use anytime she lays down to rest. A.Fib - 01/29 rate 80-100 - patient stable, on tele, asymptomatic 01/28 rate 90-107 - patient stable, on tele, asymptomatic 01/27 rate 90-130 - no sustained tachycardia. On Telemetry. Asymptomatic Patient weaned off O2 as of 01/29. Previously, patient on O2 only as needed - increasing patient's activity is decreasing O2 demands. On 01/27 she was weaned down to 1.5L from 3L. Educated patient on need for physical activity to get her weaned off the oxygen. Patient verbalized understanding. D/C plan: [facility] ---- awaiting therapy recommendations. If patient unable/unwilling to participate in evaluation she will need to go to residential for discharge. - Need Coumadin Bridge with wt based Lovenox - RX printed ready for discharge; repeat PT/INR prior to D/C
[2017-01-30] MEDS: *HR* OxyCODONE Immed Rel 5 MG TABLET PO PRN ×3 (04:27→14:37)
[2017-01-30] MEDS: *HR* Enoxaparin 30 MG/0.3 ML SYRINGE SQ SCH (06:35)
[2017-01-30] MEDS: Budesonide/Formoterol 160/4.5 MDI IH SCH (07:53)
[2017-01-30] MEDS: Cyanocobalamin (B-12) 1,000 MCG TABLET PO SCH (08:02)
[2017-01-30] MEDS: *HR* Metformin 500 MG TABLET PO SCH (08:02)
[2017-01-30] MEDS: Cholecalciferol (D-3) 1,000 UNIT TABLET PO SCH (08:02)
[2017-01-30] MEDS: Metoprolol XL (24 HR) Succ 50 MG TAB.ER.24H PO SCH (08:02)
[2017-01-30] MEDS: Insulin LISPRO 300 UNITS/3 ML VIAL SQ SCH ×2 (08:03→11:26)
[2017-01-30] MEDS: *HR* Warfarin 7.5 MG TABLET PO SCH (08:03)
[2017-01-30 10:45] VITALS: BP 114/76
[2017-01-30 12:11] LABS: INR 1.8; Prothrombin Time 19.6 Seconds (9.4-12.1)
--- NOTE | 2017-01-30 13:44 | Orthopedics Progress Note ---
Date of Encounter: 01/30/17 Time of Encounter: 08:00 - Assessment and Plan (1) Arthritis of knee, right Current Visit: No Status: Chronic (2) Status post total knee replacement Current Visit: No Status: Acute Qualifiers: Laterality: right Qualified Code(s): Z96.651 - Presence of right artificial knee joint (3) COPD (chronic obstructive pulmonary disease) Current Visit: No Status: Chronic Qualifiers: COPD type: unspecified COPD Qualified Code(s): J44.9 - Chronic obstructive pulmonary disease, unspecified (4) VIANEY (obstructive sleep apnea) Current Visit: No Status: Chronic (5) HTN (hypertension) Current Visit: No Status: Chronic Qualifiers: Hypertension type: essential hypertension Qualified Code(s): I10 - Essential (primary) hypertension (6) DMII (diabetes mellitus, type 2) Current Visit: No Status: Chronic Qualifiers: Diabetes mellitus complication status: without complication 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: unspecified senior care insulin use status Qualified Code(s): E11.9 - Type 2 diabetes mellitus without complications (7) Obesity Current Visit: No Status: Chronic Qualifiers: Obesity type: due to excess calories Obesity classification: unspecified obesity classification Serious obesity comorbidity presence: unspecified whether serious comorbidity present Qualified Code(s): E66.09 - Other obesity due to excess calories (8) Atrial fibrillation Current Visit: No Status: Chronic Qualifiers: Atrial fibrillation type: chronic Qualified Code(s): I48.2 - Chronic atrial fibrillation (9) Chronic anticoagulation Current Visit: No Status: Chronic Subjective Principal diagnosis: s/p Right TKR Interval history: Patient was seen this morning doing well without complaints. No complaints overnight with regards to atrial fibrillation. HR improves with deep breathing exercises. Asymptomatic. Afebrile - vital signs stable. Operative extremity: Neurovascularly intact Dressing clean dry and intact Calves nontender Assessment and plan: Continue with postoperative care - partiicpating in PT discharge today to [facility] Objective Vital signs: Vital Signs Temp Pulse Resp BP Pulse Ox 01/30/17 10:00 98.4 F 103 16 114/76 97 01/30/17 06:44 98.8 F 107 18 117/68 95 01/30/17 04:13 98.5 F 105 20 112/63 95 01/30/17 01:02 98.1 F 95 20 117/69 93 01/29/17 20:32 18 98 10/05/17 19:55 98.1 F 119 21 116/68 98 01/29/17 15:05 98.1 F 92 16 112/56 95 Intake and Output 01/29/17 01/30/17 01/30/17 23:59 07:59 15:59 Intake Total 300 / 300 Output Total 350 / 350 Balance -50 / -50 Intake: Oral 300 / 300 Output: Urine 350 / 350 Other: # Voids 2 Blood Glucose* 131 179 134 Incision: clean and dry - Labs CBC & BMP: 01/29/17 09:55 01/28/17 05:38 Labs: Abnormal lab results Hgb 10.2 g/dL (11.5-15.4) L 01/29/17 09:55 Hct 31.5 % (35.3-44.9) L 01/29/17 09:55 PT 19.6 Seconds (9.4-12.1) H 01/30/17 11:59 Sodium 135 mEq/L (136-145) L 01/28/17 05:38 Glucose 138 mg/dL (70-99) H 01/28/17 05:38 POC Glucose 179 (58-89) H 01/30/17 07:08 - VTE Documentation of Mechanical Device: Venous foot pump, device Consult Discharge Plan - Plan Referrals: Milton Rodriguez MD [Primary Care Provider] -
--- NOTE | 2017-01-30 16:27 | Event Note ---
Date of Encounter: 01/30/17 Time of Encounter: 12:40 PCR - Right TKR 01/27 POD#4 Comorbidities: COPD - CPAP, VIANEY, HTN, DMII, Obesity, A.fib - Chronic anticoagulation on Coumadin; CKD III Labs: 01/27 - H/H - stable; PT/INR - repeat 01/28 01/28 H/H 10.2/34.4; BG 138; PT/INR 13.1/1.2 01/29 H/H 10.2/31.5 PT/INR 17.1/1.6 01/30 PT/INR 19.6/1.8 Patient seen at bedside. Male present in room with patient. Pain control: adequate. Lidocaine patches ordered to aid with controlling local pain. Working well today. All questions and concerns addressed. Educated on use of incentive spirometer, ambulation, and hydration. Patient had errantly been instructed to stay in bed by unknown source, patient to participate in PT. Patient verbalized understanding of need for PT. Patient continued to refuse participation in PT up to this point. Educated patient that if she does not participate in PT and meet benchmarks with regard to ambulation and independency then she will not be able to go to [place] for rehab as has been the plan. She verbalizes understanding. 01/30 - patient participating in PT well - has ambulated. Patient educated on post-operative restrictions and care. Addressed: CPAP at night - patient continues not to use CPAP despite recommendations to use anytime she lays down to rest. A.Fib - 01/30 rate 90-110 - patient stable, asymptomatic 01/29 rate 80-100 - patient stable, on tele, asymptomatic 01/28 rate 90-107 - patient stable, on tele, asymptomatic 01/27 rate 90-130 - no sustained tachycardia. On Telemetry. Asymptomatic Patient weaned off O2 as of 01/29. Previously, patient on O2 only as needed - increasing patient's activity is decreasing O2 demands. On 01/27 she was weaned down to 1.5L from 3L. Educated patient on need for physical activity to get her weaned off the oxygen. Patient verbalized understanding. D/C plan: [facility] - anticipated tomorrow (01/31) - Need Coumadin Bridge with wt based Lovenox - RX printed ready for discharge; repeat PT/INR prior to D/C
== END 2017-01-30 16:41 | disposition other institution (70) | DRG 470 ==
LOC: SAMDAY 06:31 → 3NENU 06:32 → SAMDAY 11:42 → 3NENU 20:24
PROVIDERS: ADMIT Orthopaedic Surgery; ATTEND Orthopaedic Surgery

== ENCOUNTER 2017-07-31 11:27 | Observation (INO) ==
--- NOTE | 2017-07-31 11:43 | Emergency Department Note ---
Disposition Clinical Impression: Atrial fibrillation with RVR, Dyspnea on exertion Disposition: Admitted As Inpatient Condition: Undetermined General Adult HPI - General Chief complaint: ED Shortness of Breath/Dyspnea Stated complaint: LUIS EDUARDO Time Seen by Provider: 07/31/17 11:35 Source: patient, family Limitations: no limitations - History of Present Illness Pain Scale: 5 - Related Data Home Medications Medication Instructions Recorded Confirmed Montelukast [Singulair] 10 mg PO HS 01/01/16 07/31/17 Potassium Chloride [K-Tab ER] 20 meq PO DAILY PRN 01/01/16 07/31/17 Albuterol Sulfate [Proair Hfa] 2 puff IH Q4H PRN 06/16/16 07/31/17 Cholecalciferol (Vitamin D3) 5,000 unit PO DAILY 01/26/17 07/31/17 [Vitamin D3] Cyanocobalamin (Vitamin B-12) 1,000 mcg PO DAILY 01/26/17 07/31/17 [Vitamin B12] Pravastatin Sodium [Pravachol] 40 mg PO DAILY 01/26/17 07/31/17 Cyclobenzaprine [Flexeril] 10 mg PO TID 07/31/17 07/31/17 Furosemide [Lasix] 40 mg PO DAILY PRN 07/31/17 07/31/17 Meloxicam [Meloxicam] 15 mg PO DAILY 07/31/17 07/31/17 Warfarin Sodium [Warfarin Sodium] 5 mg PO MO 07/31/17 07/31/17 Warfarin [Coumadin] 7.5 mg PO [id number] 07/31/17 07/31/17 Previous Rx's Medication Instructions Recorded Budesonide/Formoterol 160/4.5 2 puff IH BIDR inhaler 02/04/17 [Symbicort 160/4.5] Fluticasone Propionate Nasal 50 mcg NS DAILY PRN bottle 02/04/17 [Flonase] Metoprolol XL (24 HR) Succ [Toprol 50 mg PO BID tab.er.24h 02/04/17 Xl] Sertraline [Zoloft] 100 mg PO DAILY tablet 02/04/17 Allergies Allergy/AdvReac Type Severity Reaction Status Date / Time Banana Allergy Hives Verified 07/31/17 11:34 peanut Allergy Hives Verified 07/31/17 11:34 bismuth subsalicylate AdvReac Vomiting Verified 07/31/17 11:34 [From Pepto-Bismol] codeine AdvReac Drowsy Verified 07/31/17 11:34 Past Medical History - Past Medical History Medical history: Reports: asthma, atrial fibrillation, COPD, coronary artery disease, diabetes, hyperlipidemia, hypertension Surgical history: Reports: appendectomy, cataract, cholecystectomy, other Psychiatric history: Reports: anxiety, depression [employer] history: Reports: non-contributory - Social History Smoking Status: Former smoker Smokeless Tobacco Status: No Alcohol use: Reports: none Drug use: Reports: none Physical Exam - General Limitations: no limitations General appearance: alert, anxious Course Vital Signs Temperature 100.4 F H 07/31/17 11:30 Pulse Rate 135 07/31/17 11:30 Respiratory Rate 26 07/31/17 11:30 Blood Pressure 137/96 07/31/17 11:30 O2 Sat by Pulse Oximetry 96 07/31/17 11:30 Temperature 97.6 F 08/01/17 07:21 Pulse Rate 118 08/01/17 07:21 Respiratory Rate 17 08/01/17 07:21 Blood Pressure 148/82 08/01/17 07:21 O2 Sat by Pulse Oximetry 95 08/01/17 07:21 Oxygen Delivery Oxygen Delivery Nasal Cannula Medical Decision Making - Lab Data Result diagrams: 07/31/17 11:45 07/31/17 11:45 Lab Results 07/31/17 07/31/17 07/31/17 Range/Units 11:45 11:45 11:45 WBC 8.9 (4.3-11.1) K/mcL RBC 4.18 (3.82-4.97) M/mcL Hgb 12.4 (11.5-15.4) g/dL Hct 38.4 (35.3-44.9) % MCV 91.9 (83.0-100.0) fL MCH 29.7 (28.0-33.3) pg MCHC 32.3 (31.6-35.5) g/dL RDW 14.0 (11.5-14.5) % Plt Count 121 L (140-400) K/mcL MPV 12.4 (9.4-12.4) fL Immature Gran % 0.6 (0-4) % Seg Neutrophils % 70.5 % Lymphocytes % 19.2 % Monocytes % 7.2 % Eosinophils % 1.8 % Basophils % 0.7 % Neutrophils # 6.3 (1.6-8.9) K/mcL Lymphocytes # 1.7 (0.6-4.6) K/mcL Monocytes # 0.6 (0.0-1.3) K/mcL Eosinophils # 0.2 (0.0-0.6) K/mcL Basophils # 0.1 (0.0-0.2) K/mcL Nucleated RBCs/100 WBC 0.3 H (0) /100 WBC PT 24.3 H (9.4-12.1) Seconds INR 2.2 Sodium (136-145) mEq/L Potassium (3.5-5.1) mEq/L Chloride (98-107) mEq/L Carbon Dioxide (23-29) mEq/L BUN (8-23) mg/dL Creatinine (0.60-1.20) mg/dL Est GFR ( Amer) (> 60) Est GFR (Non-Af Amer) (> 60) BUN/Creatinine Ratio (6-26) Glucose (70-105) mg/dL Calculated Osmolality (280-300) Lactic Acid (0.5-2.2) mmol/L Calcium (8.6-10.3) mg/dL Magnesium (1.6-2.6) mg/dL Total Bilirubin (0.3-1.0) mg/dL Direct Bilirubin (0.0-0.2) mg/dL Indirect Bilirubin (0.0-1.2) mg/dL AST (13-39) Units/L ALT (7-52) Units/L Alkaline Phosphatase (34-104) Units/L Troponin I (< 0.04) ng/mL B-Natriuretic Peptide 595 H (Less than 100) pg/mL Serum Total Protein (6.4-8.9) g/dL Albumin (3.5-5.7) g/dL Globulin (2.4-3.5) g/dL Albumin/Globulin Ratio (1.1-2.2) Ur Specimen Adequacy Urine Color (Yellow) Urine Clarity (Clear) Urine pH (5.0-8.0) pH Units Ur Specific [place] (1.010-1.025) Urine Protein (Neg-Trace) mg/dL Urine Glucose (UA) (Normal) mg/dL Urine Ketones (Negative) mg/dL Urine Blood (Negative) Urine Nitrite (Negative) Urine Bilirubin (Negative) Urine Urobilinogen (Normal) mg/dL Ur Leukocyte Esterase (Negative) Urine Microscopic RBC (0-3) per hpf Urine Microscopic WBC (0-3) per hpf Ur Squamous Epith Cells (None-Few) per lpf Amorphous Sediment (Few) Urine Bacteria (None-Few) per hpf Hyaline Casts (None-Few) per lpf Ur Culture Indicated? (NO) 07/31/17 07/31/17 07/31/17 Range/Units 11:45 11:47 12:01 WBC (4.3-11.1) K/mcL RBC (3.82-4.97) M/mcL Hgb (11.5-15.4) g/dL Hct (35.3-44.9) % MCV (83.0-100.0) fL MCH (28.0-33.3) pg MCHC (31.6-35.5) g/dL RDW (11.5-14.5) % Plt Count (140-400) K/mcL MPV (9.4-12.4) fL Immature Gran % (0-4) % Seg Neutrophils % % Lymphocytes % % Monocytes % % Eosinophils % % Basophils % % Neutrophils # (1.6-8.9) K/mcL Lymphocytes # (0.6-4.6) K/mcL Monocytes # (0.0-1.3) K/mcL Eosinophils # (0.0-0.6) K/mcL Basophils # (0.0-0.2) K/mcL Nucleated RBCs/100 WBC (0) /100 WBC PT (9.4-12.1) Seconds INR Sodium 140 (136-145) mEq/L Potassium 4.0 (3.5-5.1) mEq/L Chloride 106 (98-107) mEq/L Carbon Dioxide 26 (23-29) mEq/L BUN 22 (8-23) mg/dL Creatinine 0.87 (0.60-1.20) mg/dL Est GFR ( Amer) > 60 (> 60) Est GFR (Non-Af Amer) > 60 (> 60) BUN/Creatinine Ratio 25 (6-26) Glucose 122 H (70-105) mg/dL Calculated Osmolality 295 (280-300) Lactic Acid 1.3 (0.5-2.2) mmol/L Calcium 9.3 (8.6-10.3) mg/dL Magnesium 1.9 (1.6-2.6) mg/dL Total Bilirubin 1.1 H (0.3-1.0) mg/dL Direct Bilirubin 0.3 H (0.0-0.2) mg/dL Indirect Bilirubin 0.8 (0.0-1.2) mg/dL AST 21 (13-39) Units/L ALT 17 (7-52) Units/L Alkaline Phosphatase 59 (34-104) Units/L Troponin I 0.05 H* (< 0.04) ng/mL B-Natriuretic Peptide (Less than 100) pg/mL Serum Total Protein 6.9 (6.4-8.9) g/dL Albumin 3.8 (3.5-5.7) g/dL Globulin 3.1 (2.4-3.5) g/dL Albumin/Globulin Ratio 1.2 (1.1-2.2) Ur Specimen Adequacy See below A Urine Color Yellow (Yellow) Urine Clarity Slightly Hazy (Clear) Urine pH 5.0 (5.0-8.0) pH Units Ur Specific [place] 1.029 H (1.010-1.025) Urine Protein 100 H (Neg-Trace) mg/dL Urine Glucose (UA) Normal (Normal) mg/dL Urine Ketones Trace H (Negative) mg/dL Urine Blood Negative (Negative) Urine Nitrite Negative (Negative) Urine Bilirubin Small H (Negative) Urine Urobilinogen Normal (Normal) mg/dL Ur Leukocyte Esterase Negative (Negative) Urine Microscopic RBC 0-3 (0-3) per hpf Urine Microscopic WBC 3-5 H (0-3) per hpf Ur Squamous Epith Cells Many H (None-Few) per lpf Amorphous Sediment Moderate H (Few) Urine Bacteria None Seen (None-Few) per hpf Hyaline Casts Few (None-Few) per lpf Ur Culture Indicated? NO (NO) Attestation Statement - Attestation Attestation: I examined this patient and my medical decision-making was reviewed with the Resident Physician. I agree with the documented findings, disposition and treatment plan as described except to the extent set forth below. [id number] time provided Patient arrives complaining of dyspnea. She is febrile and tachycardic. She has a known history of atrial fibrillation. She does not appear in any acute distress on exam. Workup in conjunction with the resident physician Dr. Moy initiated
[2017-07-31] MEDS ORDERED: Aspirin 325 MG TABLET PO ONE (12:05)
--- NOTE | 2017-07-31 12:13 | Emergency Department Note ---
Disposition Clinical Impression: Atrial fibrillation with RVR, Dyspnea on exertion Disposition: Admitted As Inpatient Condition: Undetermined Referrals: Milton Rodriguez MD [Primary Care Provider] - Forms: ED Satisfaction Letter Time of Disposition: 13:33 SOB HPI - General Chief Complaint: ED Shortness of Breath/Dyspnea Stated Complaint: LUIS EDUARDO Time Seen by Provider: 07/31/17 11:35 Source: patient, family Mode of arrival: private vehicle Limitations: no limitations Nursing Notes Reviewed: Yes Vital Signs Reviewed: Yes - History of Present Illness 62-year-old female with history of atrial fibrillation is chronic, COPD on warfarin therapy, arrives to the emergency department with complaint of dyspnea. The patient states it is with exertion. She has some associated chest tightness. The patient states she is only in the waiting a few feet before she gets her short of breath. The patient states this feels similar to when she first was diagnosed with A. fib. The patient denies any other complaints at this time. She is noted to be tachycardic in the 130s here in the emergency department was noted to be the 150s at home. The patient did take her morning dose of Lopressor which did lower her heart rate to the 70s. The patient states this has lasted only a few minutes. She denies any unilateral leg swelling, hemoptysis, history of DVT or PE. The patient is been taking all of her medications than she is supposed to. She is also noted to be febrile here in the emergency Department does note that she has a cough but it is nonproductive. - Related Data Home Medications Medication Instructions Recorded Confirmed Montelukast [Singulair] 10 mg PO HS 01/01/16 07/03/17 Potassium Chloride [K-Tab ER] 20 meq PO DAILY PRN 01/01/16 07/03/17 dilTIAZem HCl [Diltiazem HCl] 120 mg PO TID 01/01/16 07/03/17 Albuterol Sulfate [Proair Hfa] 2 puff IH Q4H PRN 06/16/16 07/03/17 Cholecalciferol (Vitamin D3) 5,000 unit PO DAILY 01/26/17 07/03/17 [Vitamin D3] Cyanocobalamin (Vitamin B-12) 1,000 mcg PO DAILY 01/26/17 07/03/17 [Vitamin B12] Pravastatin Sodium [Pravachol] 40 mg PO DAILY 01/26/17 07/03/17 Bactrim 07/03/17 Previous Rx's Medication Instructions Recorded Enoxaparin [Lovenox *PHARMACY WT 100 mg SQ Q12HR #8 syringe 01/25/17 BASED*] OxyCODONE Immed Rel [Roxicodone 5 5 mg PO Q6HR PRN #28 tablet 01/25/17 MG] Budesonide/Formoterol 160/4.5 2 puff IH BIDR inhaler 02/04/17 [Symbicort 160/4.5] Diltiazem [Cardizem] 120 mg PO TID tablet 02/04/17 Docusate [Colace] 100 mg PO BID PRN capsule 02/04/17 Fluticasone Propionate Nasal 50 mcg NS DAILY PRN bottle 02/04/17 [Flonase] Furosemide [Lasix] 40 mg PO BIDDIURETIC PRN tablet 02/04/17 Metoprolol XL (24 HR) Succ [Toprol 50 mg PO BID tab.er.24h 02/04/17 Xl] Montelukast [Singulair] 10 mg PO HS tablet 02/04/17 Sertraline [Zoloft] 100 mg PO DAILY tablet 02/04/17 Simvastatin [Zocor] 40 mg PO HS tablet 02/04/17 Warfarin [Coumadin] 7.5 mg PO DAILY@1800 tablet 02/04/17 metFORMIN [Glucophage] 500 mg PO BIDWM tablet 02/04/17 Tizanidine HCl 4 mg PO TID #15 tablet 02/19/17 Sulfamethoxazole/Trimeth DS 1 each PO BID 7 Days #14 tablet 07/01/17 [Bactrim DS] Mupirocin [Bactroban Oint] 1 appl TP BID #2 tube 07/03/17 Sulfamethoxazole/Trimeth DS 1 each PO BID #14 tablet 07/03/17 [Bactrim DS] Allergies Allergy/AdvReac Type Severity Reaction Status Date / Time Banana Allergy Hives Verified 07/31/17 11:34 peanut Allergy Hives Verified 07/31/17 11:34 bismuth subsalicylate AdvReac Vomiting Verified 07/31/17 11:34 [From Pepto-Bismol] codeine AdvReac Drowsy Verified 07/31/17 11:34 All systems ED: reviewed and negative except as stated. Constitutional: Reports: fever, weakness. Denies: chills ENT ED: Denies: congestion Cardiovascular: Reports: dyspnea on exertion. Denies: chest pain, palpitations , orthopnea, edema, syncope Respiratory: Reports: cough, dyspnea. Denies: wheezes, hemoptysis, sputum production Gastrointestinal: Denies: abdominal pain, nausea, vomiting, diarrhea, constipation, hematemesis, melena, hematochezia Genitourinary: Denies: urgency, dysuria Musculoskeletal: Denies: back pain, arthralgia, myalgia Integumentary: Denies: rash Neurological: Denies: headache, weakness, numbness, paresthesias Past Medical History - Past Medical History Attestation: Yes The following information was validated with the patient. Source: patient, old records reviewed, obtained from family Medical history: Reports: asthma, atrial fibrillation, COPD, coronary artery disease, diabetes, hyperlipidemia, hypertension Surgical history: Reports: appendectomy, cataract, cholecystectomy, other Psychiatric history: Reports: anxiety, depression [employer] DIRECT[employer] history: Reports: non-contributory - Social History Smoking Status: Former smoker Smokeless Tobacco Status: No Alcohol use: Reports: none Drug use: Reports: none Physical Exam - General Limitations: no limitations General appearance: alert, anxious - Head Head exam: atraumatic, normocephalic, normal inspection - Eye Eye exam: Present: normal appearance, PERRL, EOMI - ENT ENT exam: normal exam, normal oropharynx, mucous membranes moist - Neck Neck exam: Present: normal inspection, full ROM, trachea midline - Chest Chest inspection: Present: normal inspection, symmetric chest wall rise - Respiratory Respiratory exam: Present: normal lung sounds bilaterally - Cardiovascular Cardiovascular exam: Present: tachycardia, irregular rhythm, normal heart sounds - Abdominal Exam Abdominal exam: Present: soft, Non-Tender. Absent: tenderness, distention, guarding, rebound, rigidity - Extremities Exam Extremities exam: Present: normal inspection, full ROM, pedal edema (1+ pitting) . Absent: tenderness - Neurological Exam Neurological exam: Present: alert, oriented X3, CN II-XII intact. Absent: motor sensory deficit - Skin Skin exam: Present: warm, dry, intact, normal color Course Vital Signs Temperature 100.4 F H 07/31/17 11:30 Pulse Rate 135 07/31/17 11:30 Respiratory Rate 26 07/31/17 11:30 Blood Pressure 137/96 07/31/17 11:30 O2 Sat by Pulse Oximetry 96 07/31/17 11:30 Temperature 100.4 F H 07/31/17 11:30 Pulse Rate 114 07/31/17 12:32 Respiratory Rate 20 07/31/17 12:32 Blood Pressure 138/101 07/31/17 12:32 O2 Sat by Pulse Oximetry 95 07/31/17 12:32 Oxygen Delivery Oxygen Delivery Nasal Cannula Shortness of Breath/Dyspnea - MDM Narrative Medical decision making narrative: Workup in the emergency department demonstrates a mildly elevated troponin which is likely secondary to patient's atrial fibrillation with RVR. There are no EKG changes noted. The patient was however administered aspirin. The patient does have a mildly elevated BNP which again is likely secondary to her A. fib with RVR. No overt pulmonary edema. The patient does have bilateral lower surety swelling. The patient is currently rate controlled a heart rate in the 90s. She is resting comfortably when she is sitting still. She denies any other complaints at this time. We will admit the patient to the hospital for further workup and care. Patient made aware and agrees to plan. No further questions or concerns noted at this time. Accepted by Dr. Sanchez. - Lab Data Lab results reviewed: Yes I reviewed the patient's lab results. Result diagrams: 07/31/17 11:45 07/31/17 11:45 Lab Results 07/31/17 07/31/17 07/31/17 Range/Units 11:45 11:45 11:45 WBC 8.9 (4.3-11.1) K/mcL RBC 4.18 (3.82-4.97) M/mcL Hgb 12.4 (11.5-15.4) g/dL Hct 38.4 (35.3-44.9) % MCV 91.9 (83.0-100.0) fL MCH 29.7 (28.0-33.3) pg MCHC 32.3 (31.6-35.5) g/dL RDW 14.0 (11.5-14.5) % Plt Count 121 L (140-400) K/mcL MPV 12.4 (9.4-12.4) fL Immature Gran % 0.6 (0-4) % Seg Neutrophils % 70.5 % Lymphocytes % 19.2 % Monocytes % 7.2 % Eosinophils % 1.8 % Basophils % 0.7 % Neutrophils # 6.3 (1.6-8.9) K/mcL Lymphocytes # 1.7 (0.6-4.6) K/mcL Monocytes # 0.6 (0.0-1.3) K/mcL Eosinophils # 0.2 (0.0-0.6) K/mcL Basophils # 0.1 (0.0-0.2) K/mcL Nucleated RBCs/100 WBC 0.3 H (0) /100 WBC PT 24.3 H (9.4-12.1) Seconds INR 2.2 Sodium (136-145) mEq/L Potassium (3.5-5.1) mEq/L Chloride (98-107) mEq/L Carbon Dioxide (23-29) mEq/L BUN (8-23) mg/dL Creatinine (0.60-1.20) mg/dL Est GFR ( Amer) (> 60) Est GFR (Non-Af Amer) (> 60) BUN/Creatinine Ratio (6-26) Glucose (70-105) mg/dL Calculated Osmolality (280-300) Lactic Acid (0.5-2.2) mmol/L Calcium (8.6-10.3) mg/dL Magnesium (1.6-2.6) mg/dL Total Bilirubin (0.3-1.0) mg/dL Direct Bilirubin (0.0-0.2) mg/dL Indirect Bilirubin (0.0-1.2) mg/dL AST (13-39) Units/L ALT (7-52) Units/L Alkaline Phosphatase (34-104) Units/L Troponin I (< 0.04) ng/mL B-Natriuretic Peptide 595 H (Less than 100) pg/mL Serum Total Protein (6.4-8.9) g/dL Albumin (3.5-5.7) g/dL Globulin (2.4-3.5) g/dL Albumin/Globulin Ratio (1.1-2.2) Ur Specimen Adequacy Urine Color (Yellow) Urine Clarity (Clear) Urine pH (5.0-8.0) pH Units Ur Specific [place] (1.010-1.025) Urine Protein (Neg-Trace) mg/dL Urine Glucose (UA) (Normal) mg/dL Urine Ketones (Negative) mg/dL Urine Blood (Negative) Urine Nitrite (Negative) Urine Bilirubin (Negative) Urine Urobilinogen (Normal) mg/dL Ur Leukocyte Esterase (Negative) Urine Microscopic RBC (0-3) per hpf Urine Microscopic WBC (0-3) per hpf Ur Squamous Epith Cells (None-Few) per lpf Amorphous Sediment (Few) Urine Bacteria (None-Few) per hpf Hyaline Casts (None-Few) per lpf Ur Culture Indicated? (NO) 07/31/17 07/31/17 07/31/17 Range/Units 11:45 11:47 12:01 WBC (4.3-11.1) K/mcL RBC (3.82-4.97) M/mcL Hgb (11.5-15.4) g/dL Hct (35.3-44.9) % MCV (83.0-100.0) fL MCH (28.0-33.3) pg MCHC (31.6-35.5) g/dL RDW (11.5-14.5) % Plt Count (140-400) K/mcL MPV (9.4-12.4) fL Immature Gran % (0-4) % Seg Neutrophils % % Lymphocytes % % Monocytes % % Eosinophils % % Basophils % % Neutrophils # (1.6-8.9) K/mcL Lymphocytes # (0.6-4.6) K/mcL Monocytes # (0.0-1.3) K/mcL Eosinophils # (0.0-0.6) K/mcL Basophils # (0.0-0.2) K/mcL Nucleated RBCs/100 WBC (0) /100 WBC PT (9.4-12.1) Seconds INR Sodium 140 (136-145) mEq/L Potassium 4.0 (3.5-5.1) mEq/L Chloride 106 (98-107) mEq/L Carbon Dioxide 26 (23-29) mEq/L BUN 22 (8-23) mg/dL Creatinine 0.87 (0.60-1.20) mg/dL Est GFR ( Amer) > 60 (> 60) Est GFR (Non-Af Amer) > 60 (> 60) BUN/Creatinine Ratio 25 (6-26) Glucose 122 H (70-105) mg/dL Calculated Osmolality 295 (280-300) Lactic Acid 1.3 (0.5-2.2) mmol/L Calcium 9.3 (8.6-10.3) mg/dL Magnesium 1.9 (1.6-2.6) mg/dL Total Bilirubin 1.1 H (0.3-1.0) mg/dL Direct Bilirubin 0.3 H (0.0-0.2) mg/dL Indirect Bilirubin 0.8 (0.0-1.2) mg/dL AST 21 (13-39) Units/L ALT 17 (7-52) Units/L Alkaline Phosphatase 59 (34-104) Units/L Troponin I 0.05 H* (< 0.04) ng/mL B-Natriuretic Peptide (Less than 100) pg/mL Serum Total Protein 6.9 (6.4-8.9) g/dL Albumin 3.8 (3.5-5.7) g/dL Globulin 3.1 (2.4-3.5) g/dL Albumin/Globulin Ratio 1.2 (1.1-2.2) Ur Specimen Adequacy See below A Urine Color Yellow (Yellow) Urine Clarity Slightly Hazy (Clear) Urine pH 5.0 (5.0-8.0) pH Units Ur Specific [place] 1.029 H (1.010-1.025) Urine Protein 100 H (Neg-Trace) mg/dL Urine Glucose (UA) Normal (Normal) mg/dL Urine Ketones Trace H (Negative) mg/dL Urine Blood Negative (Negative) Urine Nitrite Negative (Negative) Urine Bilirubin Small H (Negative) Urine Urobilinogen Normal (Normal) mg/dL Ur Leukocyte Esterase Negative (Negative) Urine Microscopic RBC 0-3 (0-3) per hpf Urine Microscopic WBC 3-5 H (0-3) per hpf Ur Squamous Epith Cells Many H (None-Few) per lpf Amorphous Sediment Moderate H (Few) Urine Bacteria None Seen (None-Few) per hpf Hyaline Casts Few (None-Few) per lpf Ur Culture Indicated? NO (NO) - Radiology Data Radiology results reviewed: Yes I reviewed the patient's radiology results. Chest X-Ray 07/31/17 11:41 IMPRESSION: 1. Stable mild enlargement of the cardiac silhouette. No superimposed acute pulmonary abnormality. D/ / Minh Skinner MD / Minh Skinner MD Interpreting Provider: Minh Skinner MD - EKG Data EKG attestation: Yes I reviewed and interpreted this EKG. EKG results narrative: Heart rate 125 beats for minute. It was fibrillation with no ST elevation or ST depression noted. RVR noted. Previous to similar EKG from February 06.
[2017-07-31 12:14] LABS: Basophils # 0.1 K/mcL (0.0-0.2); Basophils % 0.7 %; Eosinophils # 0.2 K/mcL (0.0-0.6); Eosinophils % 1.8 %; Hematocrit 38.4 % (35.3-44.9); Hemoglobin 12.4 g/dL (11.5-15.4); INR 2.2; Immature Granulocytes % 0.6 % (0-4); Lymphocytes # 1.7 K/mcL (0.6-4.6); Lymphocytes % 19.2 %; Mean Corpuscular HGB Conc 32.3 g/dL (31.6-35.5); Mean Corpuscular Hemoglobin 29.7 pg (28.0-33.3); Mean Corpuscular Volume 91.9 fL (83.0-100.0); Mean Platelet Volume 12.4 fL (9.4-12.4); Monocytes # 0.6 K/mcL (0.0-1.3); Monocytes % 7.2 %; Neutrophils # 6.3 K/mcL (1.6-8.9); Nucleated Red Blood Cells 0.3 /100 WBC (0); Platelet Count 121 K/mcL (140-400); Prothrombin Time 24.3 Seconds (9.4-12.1); Red Blood Count 4.18 M/mcL (3.82-4.97); Segmented Neutrophils % 70.5 %
[2017-07-31 12:17] LABS: Bilirubin,Urine Small (Negative); Blood,Urine Negative (Negative); Glucose,Urine (UA) Normal (Normal); Ketones,Urine Trace mg/dL (Negative); Leukocyte Esterase,Urine Negative (Negative); Nitrite,Urine Negative (Negative); Protein,Urine 100 mg/dL (Neg-Trace); Specific Gravity,Urine 1.029 (1.010-1.025); Urobilinogen,Urine Normal (Normal)
[2017-07-31 12:19] LABS: Bacteria,Urine None Seen per hpf (None-Few); RBC,Urine 0-3 per hpf (0-3); Squamous Epithelial Cell,Urine Many per lpf (None-Few)
[2017-07-31 12:20] LABS: Clarity,Urine Slightly Hazy (Clear); Color,Urine Yellow (Yellow)
[2017-07-31 12:29] LABS: Hyaline Casts,Urine Few per lpf (None-Few)
[2017-07-31 12:30] LABS: Amorphous Sediment,Urine Moderate (Few)
[2017-07-31 12:38] LABS: Alanine Aminotransferase 17 Units/L (7-52); Albumin 3.8 g/dL (3.5-5.7); Albumin/Globulin Ratio 1.2 (1.1-2.2); Alkaline Phosphatase 59 Units/L (34-104); Aspartate Amino Transferase 21 Units/L (13-39); BUN/Creatinine Ratio 25 (6-26); Bilirubin,Direct 0.3 mg/dL (0.0-0.2); Bilirubin,Indirect 0.8 mg/dL (0.0-1.2); Bilirubin,Total 1.1 mg/dL (0.3-1.0); Blood Urea Nitrogen 22 mg/dL (8-23); Calcium 9.3 mg/dL (8.6-10.3); Carbon Dioxide 26 mEq/L (23-29); Chloride 106 mEq/L (98-107); Globulin 3.1 g/dL (2.4-3.5); Glucose 122 mg/dL (70-105); Magnesium 1.9 mg/dL (1.6-2.6); Osmolality,Calculated 295 (280-300); Sodium 140 mEq/L (136-145); Total Protein 6.9 g/dL (6.4-8.9); eGFR For African Americans > 60 (> 60); eGFR For Non-African Americans > 60 (> 60)
[2017-07-31 12:39] LABS: Troponin I 0.05 ng/mL (< 0.04)
[2017-07-31] MEDS ORDERED: Furosemide 40 MG TABLET PO PRN (14:58)
[2017-07-31] MEDS ORDERED: Fluticasone Propionate Nasal 50 MCG/SPRAY BOTTLE NS PRN (14:58)
[2017-07-31] MEDS ORDERED: methylPREDNISolone 125 MG/2 ML VIAL IVP ONE (15:03)
--- NOTE | 2017-07-31 15:13 | Internal Med History&Physical ---
Date of Encounter: 07/31/17 Time of Encounter: 14:45 Internal Medicine - H&P: HPI Admitted From: Emergency Dept Plans for Post Hospital Care: Home History of present illness: Ms. Hernandez is a 62 yr old woman with a PMH of COPD, A-Fib on Coumadin, and morbid obesity who has become increasingly sob over the past 3-4 days . She was in AFib RVR in the ER and febrile (100.4) She was hypoxix on RA and is now requiring supplemental O2. Her CXR does not linh any acute pathology. She does not have a leukocytosis but has a productive cough. She has no chest pain but her initisl troponin is elevated (0.05). She was given Levaquin after blood cultures were obtained. SoluMedrol was also given along with DuoNebs. Her RVR has resolved after two doses of Diltiazem. She is otherwise hemodynamically stable and now rate controlled. Past Med Surg Social Fam HX - Past Medical History Medical history: asthma, atrial fibrillation, COPD, coronary artery disease, diabetes, hyperlipidemia, hypertension Psychiatric history: anxiety, depression - Past Surgical History Surgical History: appendectomy, cataract, cholecystectomy, other - Social History Smoking Status: Former smoker Smokeless Tobacco Status: No Alcohol use: none Drug use: none - Family History Father Living Status: Hx Family Respiratory Disorders: Yes Mother Living Status: Internal Medicine - H&P: Meds Montelukast [Singulair] 10 mg PO HS 01/01/16 [History] Potassium Chloride [K-Tab ER] 20 meq PO DAILY PRN 01/01/16 [History] Albuterol Sulfate [Proair Hfa] 2 puff IH Q4H PRN 06/16/16 [History] Cholecalciferol (Vitamin D3) [Vitamin D3] 5,000 unit PO DAILY 01/26/17 [History] Cyanocobalamin (Vitamin B-12) [Vitamin B12] 1,000 mcg PO DAILY 01/26/17 [History ] Pravastatin Sodium [Pravachol] 40 mg PO DAILY 01/26/17 [History] Budesonide/Formoterol 160/4.5 [Symbicort 160/4.5] 2 puff IH BIDR inhaler [Rx] Fluticasone Propionate Nasal [Flonase] 50 mcg NS DAILY PRN bottle 02/04/17 [Rx] Metoprolol XL (24 HR) Succ [Toprol Xl] 50 mg PO BID tab.er.24h 02/04/17 [Rx] Sertraline [Zoloft] 100 mg PO DAILY tablet 02/04/17 [Rx] Cyclobenzaprine [Flexeril] 10 mg PO TID 07/31/17 [History] Furosemide [Lasix] 40 mg PO DAILY PRN 07/31/17 [History] Meloxicam [Meloxicam] 15 mg PO DAILY 07/31/17 [History] Warfarin Sodium [Warfarin Sodium] 5 mg PO MO 07/31/17 [History] Warfarin [Coumadin] 7.5 mg PO SUTUWETHFRSA 07/31/17 [History] 3 Allergy/AdvReac Type Severity Reaction Status Date / Time Banana Allergy Hives Verified 07/31/17 11:34 peanut Allergy Hives Verified 07/31/17 11:34 bismuth subsalicylate AdvReac Vomiting Verified 07/31/17 11:34 [From Pepto-Bismol] codeine AdvReac Drowsy Verified 07/31/17 11:34 All Systems PM: A 10-system review of systems was performed and is negative for pertinent findings except as documented above in the HPI. - Constitutional Constitutional: fever(s), malaise, no anorexia, no chills - EENT Eyes: no blurry vision, no irritation Nose, mouth and throat: no dental pain, no epistaxis, no mouth lesions, no nasal discharge - Cardiovascular Cardiovascular ROS IM: no chest pain, no diaphoresis, no edema - Respiratory Respiratory: no hemoptysis, no wheezing, no stridor - Gastrointestinal Gastrointestinal: no belching, no constipation, no early satiety - Neurological Neurological ROS: no abnormal gait, no behavioral changes, no disequilibrium, no dizziness - Psychiatric Psychiatric: no panic attacks, no suicidal ideation - Hematologic/Lymphatic Hematologic/Lymphatic: no as per HPI - Constitutional Vitals: Temp Pulse Resp BP Pulse Ox 97.3 F L 92 20 123/65 95 07/31/17 13:39 07/31/17 14:51 07/31/17 14:51 07/31/17 14:51 07/31/17 14:51 General appearance: Present: cooperative, mild distress, A&O X 3, pleasant, obese - Head Head exam: Present: atraumatic, normocephalic - Eye Eye exam: Present: PERRL, conjuntiva pink, sclera anicteric Pupils: Present: PERRL - Neck Neck exam general surgery: Present: supple, trachea midline. Absent: lymphadenopathy - Respiratory Respiratory exam: Present: CTAB. Absent: accessory muscle use, rales, rhonchi, wheezes - Cardiovascular Cardiovascular exam: Present: RRR, +S1, +S2. Absent: diastolic murmur, gallop, rubs, systolic murmur - GI/Abdominal GI/Abdominal exam: Present: normal bowel sounds, soft, no peritoneal signs. Absent: distended, tenderness - Extremities Exam Extremities exam: Present: calf tenderness, pedal edema, warm. Absent: cyanotic - Neurological Exam Neurological exam: Present: CN II-XII intact, oriented X3, no focal deficits. Absent: pronater drift, facial droop, speech deficit - Psychiatric Psychiatric exam: Present: normal affect, normal mood - Skin Skin exam: Present: dry, intact Internal Med - H&P Results - Labs CBC & Chem 7: 07/31/17 11:45 07/31/17 11:45 - Assessment and plan (1) COPD with exacerbation Current Visit: Yes Status: Acute Assessment and plan: Solumedrol 125 x1 Solumedrol 60 mg q6 DuoNebs q6 hrs Symbicort Singulair Supplemental O2 to maintain Spo2 > 92% Empiric Levaquin (2) Atrial fibrillation with RVR Current Visit: Yes Status: Acute Assessment and plan: After two boluses of Diltiazem she rate controlled Continue her home BB Continue telemetry (3) Elevated troponin Current Visit: Yes Status: Acute Assessment and plan: Continue trending troponins Telemetry She is on Coumadin She denies CP ECG did not show ischemic changes Likely demand ischemia secondary to earlier AFib RVR - Time Spent With Patient Total time spent is greater than 50% in coordination of care (as documented) at patient's floor/unit and/or counseling patient: Greater than 35 minutes
[2017-07-31] MEDS: Ipratropium/Albuterol Neb 3 ML IH SCH ×3 (16:10→23:16)
[2017-07-31] MEDS: methylPREDNISolone 125 MG/2 ML VIAL IVP SCH ×2 (17:20→23:07)
[2017-07-31] MEDS ORDERED: Warfarin perPT PO PRN (18:00)
[2017-07-31] MEDS ORDERED: *HR* Warfarin 5 MG TABLET PO ONE (18:00)
[2017-07-31] MEDS: Metoprolol XL (24 HR) Succ 50 MG TAB.ER.24H PO SCH (19:28)
[2017-07-31] MEDS: Budesonide/Formoterol 160/4.5 MDI IH SCH (19:54)
[2017-08-01 01:51] LABS: INR 2.2; Prothrombin Time 24.6 Seconds (9.4-12.1)
[2017-08-01] MEDS: Ipratropium/Albuterol Neb 3 ML IH SCH ×6 (03:45→23:43)
[2017-08-01] MEDS: methylPREDNISolone 125 MG/2 ML VIAL IVP SCH ×3 (05:12→23:07)
[2017-08-01] MEDS: Budesonide/Formoterol 160/4.5 MDI IH SCH ×2 (07:41→20:03)
[2017-08-01] MEDS: Cholecalciferol (D-3) 1,000 UNIT TABLET PO SCH (08:52)
[2017-08-01] MEDS: Metoprolol XL (24 HR) Succ 50 MG TAB.ER.24H PO SCH ×2 (08:52→20:05)
[2017-08-01] MEDS: Cyanocobalamin (B-12) 1,000 MCG TABLET PO SCH (08:53)
[2017-08-01] MEDS: Levofloxacin 750 MG/150 ML 750 MG/150 ML BAG IVPB SCH (08:53)
[2017-08-01] MEDS: Aspirin 81 MG TAB.CHEW PO SCH (08:53)
--- NOTE | 2017-08-01 12:13 | Electrocardiograph Report ---
[address] [address] Test Date: 2017-07-31 Pat Name: Cleo Hernandez Department: 103 Room: 2A42 Gender: F Stable Attendant: KUMAR : 1955 Requested By: Francisco Javier White Order Number: [id number] Reading MD: Svetlana No Measurements Intervals [place] Rate: 125 P: FL: 0 QRS: 22 QRSD: 72 T: 60 QT: 303 QTc: 377 Interpretive Statements ATRIAL FIBRILLATION WITH RAPID VENTRICULAR RESPONSE LOW QRS VOLTAGE [QRS DEFLECTION < 0.5/1.0 mV IN LIMB/CHEST LEADS] MINIMAL ST DEPRESSION [0.025+ mV ST DEPRESSION] Electronically Signed On 08-01-2017 12:11:49 EDT by Svetlana No
--- NOTE | 2017-08-01 13:37 | Internal Med Progress Note ---
Date of Encounter: 08/01/17 Time of Encounter: 13:34 - Assessment and plan (1) Atrial fibrillation with RVR Current Visit: Yes Status: Acute Assessment and plan: History of afib but not on cardizem for unknown reason anticoagulated with coumadin, INR within therapeutic range pharmacy to dose coumadin, monitor INR, goal INR: 2-3 started cardizem 30mg PO q6h and continue BB will closely monitor HR and adjust medications as needed, goal HR<100 (2) COPD with exacerbation Current Visit: Yes Status: Acute Assessment and plan: clinically improving will obtain respiratory infection panel titrate Off O2 supplementation as tolerated Decreased Solumedrol to 60mg IV q12h bronchodilator support empiric levaquin O2 supplementation as needed will continue to closely monitor respiratory status (3) Elevated troponin Current Visit: Yes Status: Acute Assessment and plan: Likely demand ischemia in the setting of Afib with RVR no chest pain reported throughout the course of hospitalization troponins trending down (4) Morbid obesity with BMI of 45.0-49.9, adult Current Visit: Yes Status: Chronic - Time Spent With Patient Total time spent is greater than 50% in coordination of care (as documented) at patient's floor/unit and/or counseling patient: - Subjective Interval history: Pt seen and examined at bedside. Resting in bed, reports of feeling better compared to previous day. Currently saturating well on 2L [place] however reports of not being on home oxygen. Noted to have rate poorly controlled Afib, states she used to be on Cardizem but unsure of the reasons why it was stopped. Will restart Cardizem 30mg PO q6h in addition to continuation of BB decrease solumedrol dose. Will titrate off O2 as tolerated - Constitutional Vitals: Temp Pulse Resp BP Pulse Ox 98.0 F 115 17 137/84 94 08/01/17 10:55 08/01/17 10:55 08/01/17 10:55 08/01/17 10:55 08/01/17 10:55 General appearance: Present: cooperative, A&O X 3, morbidly obese, pleasant, no acute distress - Head Head exam: Present: atraumatic, normocephalic - Eye Eye exam: Present: conjuntiva pink, sclera anicteric - Respiratory Respiratory exam: Present: wheezes (decreased breath sounds with bilateral expiratory wheezing ). Absent: respiratory distress - Cardiovascular Cardiovascular exam: Present: irregular rhythm, +S1, +S2, tachycardia - GI/Abdominal GI/Abdominal exam: Present: normal bowel sounds, soft, no peritoneal signs. Absent: distended, tenderness - Extremities Exam Extremities exam: Present: warm, radial pulses palpable and symmetrical. Absent : calf tenderness, tenderness - Neurological Exam Neurological exam: Present: oriented X3 Internal Medicine: Result - Labs CBC & Chem 7: 07/31/17 11:45 07/31/17 11:45 Labs: Cardiac Enzymes 07/31/17 08/01/17 Range/Units 19:09 00:36 Troponin I 0.06 H* 0.04 H* (< 0.04) ng/mL - ABG Interpretation ABG results: PT/INR, D-dimer PT 24.6 Seconds (9.4-12.1) H 08/01/17 00:36 Consult Discharge Plan - Plan Referrals: Milton Rodriguez MD [Primary Care Provider] - (web request 08/01/2017)
[2017-08-01 15:13] LABS: Adenovirus Not Detected (Not Detect); Bordetella Pertussis Not Detected (Not Detect); Chlamydophila pneumoniae Not Detected (Not Detect); Coronavirus 229E Not Detected (Not Detect); Coronavirus HKU1 Not Detected (Not Detect); Coronavirus NL63 Not Detected (Not Detect); Coronavirus OC43 Not Detected (Not Detect); Human Metapneumovirus Not Detected (Not Detect); Human Rhinovirus/Enterovirus Not Detected (Not Detect); Influenza A Subtype 2009 H1 Not Detected (Not Detect); Influenza A Untypeable Not Detected (Not Detect); Influenza B Not Detected (Not Detect); Mycoplasma pneumoniae Not Detected (Not Detect); Parainfluenza Virus 1 Not Detected (Not Detect); Parainfluenza Virus 2 Not Detected (Not Detect); Parainfluenza Virus 3 Not Detected (Not Detect); Parainfluenza Virus 4 Not Detected (Not Detect); Respiratory Syncytial Virus Not Detected (Not Detect)
[2017-08-01] MEDS ORDERED: *HR* Warfarin 5 MG TABLET PO ONE (18:00)
[2017-08-02] MEDS: Ipratropium/Albuterol Neb 3 ML IH SCH ×6 (03:47→23:50)
[2017-08-02 05:25] LABS: Hematocrit 35.6 % (35.3-44.9); Hemoglobin 11.3 g/dL (11.5-15.4); Lymphocytes # 0.5 K/mcL (0.6-4.6); Mean Corpuscular HGB Conc 31.7 g/dL (31.6-35.5); Mean Corpuscular Volume 91.5 fL (83.0-100.0); Mean Platelet Volume 12.8 fL (9.4-12.4); Monocytes # 0.3 K/mcL (0.0-1.3); Monocytes % 2.6 %; Neutrophils # 9.4 K/mcL (1.6-8.9); Platelet Count 109 K/mcL (140-400); Red Blood Count 3.89 M/mcL (3.82-4.97); Red Cell Distribution Width 14.3 % (11.5-14.5); Segmented Neutrophils % 91.4 %
[2017-08-02 05:32] LABS: INR 2.7; Prothrombin Time 29.9 Seconds (9.4-12.1)
[2017-08-02 05:33] LABS: BUN/Creatinine Ratio 31 (6-26); Blood Urea Nitrogen 27 mg/dL (8-23); Calcium 9.3 mg/dL (8.6-10.3); Carbon Dioxide 26 mEq/L (23-29); Chloride 106 mEq/L (98-107); Glucose 392 mg/dL (70-105); Magnesium 2.2 mg/dL (1.6-2.6); Osmolality,Calculated 309 (280-300); Phosphorous 3.2 mg/dL (2.7-4.5); Potassium 4.6 mEq/L (3.5-5.1); Sodium 139 mEq/L (136-145); eGFR For African Americans > 60 (> 60); eGFR For Non-African Americans > 60 (> 60)
[2017-08-02] MEDS: Cholecalciferol (D-3) 1,000 UNIT TABLET PO SCH (08:11)
[2017-08-02] MEDS: methylPREDNISolone 125 MG/2 ML VIAL IVP SCH ×2 (08:11→20:10)
[2017-08-02] MEDS: Aspirin 81 MG TAB.CHEW PO SCH (08:11)
[2017-08-02] MEDS: Metoprolol XL (24 HR) Succ 50 MG TAB.ER.24H PO SCH ×2 (08:11→20:10)
[2017-08-02] MEDS: Levofloxacin 750 MG/150 ML 750 MG/150 ML BAG IVPB SCH (08:12)
[2017-08-02] MEDS: Cyanocobalamin (B-12) 1,000 MCG TABLET PO SCH (08:12)
[2017-08-02] MEDS ORDERED: Dextrose Gel 15 GM/37.5 ML TUBE PO PRN ×2 (09:10)
[2017-08-02] MEDS ORDERED: D5% in Water 1,000 ML IVC PRN (09:10)
[2017-08-02] MEDS ORDERED: *HR* Dextrose 50 % in Water (Syg) 50 ML SYRINGE IVP PRN (09:10)
[2017-08-02 09:50] LABS: Estimated Average Glucose 131 mg/dl; Hemoglobin A1C 6.2 %
[2017-08-02] MEDS: Budesonide/Formoterol 160/4.5 MDI IH SCH ×2 (11:03→20:03)
[2017-08-02] MEDS: Insulin LISPRO 300 UNITS/3 ML VIAL SQ SCH ×2 (11:32→16:35)
--- NOTE | 2017-08-02 12:31 | Internal Med Progress Note ---
Date of Encounter: 08/02/17 Time of Encounter: 12:29 - Assessment and plan (1) Atrial fibrillation with RVR Current Visit: Yes Status: Acute Assessment and plan: History of afib but not on cardizem for unknown reason anticoagulated with coumadin, INR within therapeutic range pharmacy to dose coumadin, monitor INR, goal INR: 2-3 increased to cardizem 60mg PO q6h and continue BB will closely monitor HR and adjust medications as needed, goal HR<100 (2) COPD with exacerbation Current Visit: Yes Status: Acute Assessment and plan: clinically improving will obtain respiratory infection panel titrate Off O2 supplementation as tolerated continue Solumedrol to 60mg IV q12h, will start PO Prednisone in am bronchodilator support empiric levaquin O2 supplementation as needed will continue to closely monitor respiratory status (3) Elevated troponin Current Visit: Yes Status: Acute Assessment and plan: Likely demand ischemia in the setting of Afib with RVR no chest pain reported throughout the course of hospitalization troponins trending down 2D echo: LVEF 55%. Indeterminate diastolic function. Mildly dilated right ventricle. Moderately dilated left atrium. Mildly dilated right atrium. Mild mitral regurgitation. Moderate pulmonary hypertension. (4) Morbid obesity with BMI of 45.0-49.9, adult Current Visit: Yes Status: Chronic (5) Hyperglycemia Current Visit: Yes Status: Acute Assessment and plan: likely secondary to steroid therapy sliding scale insulin algorithm monitor FS and BG HbA1C: 6.2 - Time Spent With Patient Total time spent is greater than 50% in coordination of care (as documented) at patient's floor/unit and/or counseling patient: - Subjective Interval history: Pt seen and examined at bedside. Resting in bed, reports of feeling better compared to previous day. Currently saturating well on 2L [place] however reports of not being on home oxygen. Noted to have rate poorly controlled Afib, states she used to be on Cardizem but unsure of the reasons why it was stopped. Will restart Cardizem 30mg PO q6h in addition to continuation of BB decrease solumedrol dose. Will titrate off O2 as tolerated - Constitutional Vitals: Temp Pulse Resp BP Pulse Ox 97.7 F 79 17 105/68 98 08/02/17 11:13 08/02/17 11:13 08/02/17 11:13 08/02/17 11:13 08/02/17 11:13 General appearance: Present: cooperative, A&O X 3, morbidly obese, pleasant, no acute distress - Head Head exam: Present: atraumatic, normocephalic - Eye Eye exam: Present: conjuntiva pink, sclera anicteric - Respiratory Respiratory exam: Absent: respiratory distress, wheezes (decreased breath sounds , equal air entry bilaterally ) - Cardiovascular Cardiovascular exam: Present: RRR, +S1, +S2. Absent: diastolic murmur, gallop, rubs, systolic murmur - GI/Abdominal GI/Abdominal exam: Present: normal bowel sounds, soft, no peritoneal signs. Absent: distended, tenderness - Extremities Exam Extremities exam: Present: warm, radial pulses palpable and symmetrical. Absent : calf tenderness, tenderness - Neurological Exam Neurological exam: Present: oriented X3 Internal Medicine: Result - Labs CBC & Chem 7: 08/02/17 05:02 08/02/17 05:02 Labs: Short CBC 08/02/17 Range/Units 05:02 WBC 10.3 (4.3-11.1) K/mcL Hgb 11.3 L (11.5-15.4) g/dL Hct 35.6 (35.3-44.9) % Plt Count 109 L (140-400) K/mcL Neutrophils # 9.4 H (1.6-8.9) K/mcL BMP 08/02/17 05:02 Sodium 139 Potassium 4.6 Chloride 106 Carbon Dioxide 26 BUN 27 H Creatinine 0.86 Glucose 392 H Calcium 9.3 - ABG Interpretation ABG results: PT/INR, D-dimer PT 29.9 Seconds (9.4-12.1) H 08/02/17 05:02 - Impressions Impressions Echocardiogram 07/31/17 15:32 Impressions: LVEF 55%. Indeterminate diastolic function. Mildly dilated right ventricle. Moderately dilated left atrium. Mildly dilated right atrium. Mild mitral regurgitation. Moderate pulmonary hypertension. Left Ventricular Wall Motion: Rest Echo Findings All wall segments showed normal motion. Findings: Study Quality * Technically adequate exam. ECG Findings * Normal sinus rhythm. * Atrial fibrillation. Left Ventricle * LVEF 55%. * Indeterminate diastolic function. Right Ventricle * Mildly dilated right ventricle. Left Atrium * Moderately dilated left atrium. Right Atrium * Mildly dilated right atrium. Interatrial Septum * No evidence of PFO by color Doppler. Aortic Valve * Trileaflet aortic valve with normal function. Mitral Valve * Mild mitral regurgitation. Tricuspid Valve * Estimated RVSP is 28 mmHg. * Estimated RA pressure is 20 mmHg. * Moderate pulmonary hypertension. Pulmonic Valve * Pulmonic valve not well visualized. Aorta * Normally sized aortic root. Pericardium * The pericardium appears normal. IVC * The IVC is dilated. * IVC plethora is noted Consult Discharge Plan - Plan Referrals: Milton Rodriguez MD [Primary Care Provider] - (web request 08/01/2017)
[2017-08-02] MEDS ORDERED: *HR* Warfarin 4 MG TABLET PO ONE (18:00)
[2017-08-02] MEDS ORDERED: Insulin LISPRO 300 UNITS/3 ML VIAL SQ SCH (21:00)
[2017-08-03] MEDS: Ipratropium/Albuterol Neb 3 ML IH SCH ×6 (03:51→23:11)
[2017-08-03 06:20] LABS: Basophils % 0.1 %; Hematocrit 35.7 % (35.3-44.9); Hemoglobin 11.3 g/dL (11.5-15.4); Immature Granulocytes % 1.4 % (0-4); Lymphocytes # 0.5 K/mcL (0.6-4.6); Mean Corpuscular HGB Conc 31.7 g/dL (31.6-35.5); Mean Corpuscular Hemoglobin 29.2 pg (28.0-33.3); Mean Corpuscular Volume 92.2 fL (83.0-100.0); Mean Platelet Volume 12.8 fL (9.4-12.4); Monocytes # 0.3 K/mcL (0.0-1.3); Monocytes % 2.9 %; Neutrophils # 8.8 K/mcL (1.6-8.9); Platelet Count 108 K/mcL (140-400); Red Blood Count 3.87 M/mcL (3.82-4.97); Red Cell Distribution Width 14.1 % (11.5-14.5); Segmented Neutrophils % 90.6 %
[2017-08-03 06:30] LABS: INR 2.6; Prothrombin Time 28.2 Seconds (9.4-12.1)
[2017-08-03 06:35] LABS: BUN/Creatinine Ratio 38 (6-26); Blood Urea Nitrogen 33 mg/dL (8-23); Calcium 9.2 mg/dL (8.6-10.3); Carbon Dioxide 30 mEq/L (23-29); Chloride 104 mEq/L (98-107); Glucose 347 mg/dL (70-105); Magnesium 2.1 mg/dL (1.6-2.6); Osmolality,Calculated 305 (280-300); Phosphorous 3.5 mg/dL (2.7-4.5); Potassium 4.5 mEq/L (3.5-5.1); Sodium 137 mEq/L (136-145); eGFR For African Americans > 60 (> 60); eGFR For Non-African Americans > 60 (> 60)
[2017-08-03] MEDS: Cyanocobalamin (B-12) 1,000 MCG TABLET PO SCH (07:53)
[2017-08-03] MEDS: Metoprolol XL (24 HR) Succ 50 MG TAB.ER.24H PO SCH ×2 (07:53→22:09)
[2017-08-03] MEDS: predniSONE 20 MG TABLET PO SCH (07:54)
[2017-08-03] MEDS: Levofloxacin 750 MG/150 ML 750 MG/150 ML BAG IVPB SCH (07:54)
[2017-08-03] MEDS: Cholecalciferol (D-3) 1,000 UNIT TABLET PO SCH (07:54)
[2017-08-03] MEDS: Aspirin 81 MG TAB.CHEW PO SCH (07:54)
[2017-08-03] MEDS: Insulin LISPRO 300 UNITS/3 ML VIAL SQ SCH ×3 (07:55→17:32)
[2017-08-03] MEDS: Budesonide/Formoterol 160/4.5 MDI IH SCH ×2 (08:14→19:34)
[2017-08-03] MEDS ORDERED: levoFLOXacin 750 MG TABLET PO SCH (09:00)
[2017-08-03] MEDS: Diltiazem CD (24hr) 180 MG CAPSULE PO SCH (12:38)
--- NOTE | 2017-08-03 15:23 | Internal Med Progress Note ---
Date of Encounter: 08/03/17 Time of Encounter: 14:05 - Assessment and plan (1) Atrial fibrillation with RVR Current Visit: Yes Status: Acute Assessment and plan: History of afib but not on cardizem for unknown reason anticoagulated with coumadin, INR within therapeutic range pharmacy to dose coumadin, monitor INR, goal INR: 2-3 changed to Cardizem ER 360mg PO qd continue BB will closely monitor HR and adjust medications as needed, goal HR<100 (2) COPD with exacerbation Current Visit: Yes Status: Acute Assessment and plan: clinically improving will obtain respiratory infection panel titrate Off O2 supplementation as tolerated started PO Prednisone bronchodilator support empiric levaquin O2 supplementation as needed will continue to closely monitor respiratory status (3) Elevated troponin Current Visit: Yes Status: Acute Assessment and plan: Likely demand ischemia in the setting of Afib with RVR no chest pain reported throughout the course of hospitalization troponins trending down 2D echo: LVEF 55%. Indeterminate diastolic function. Mildly dilated right ventricle. Moderately dilated left atrium. Mildly dilated right atrium. Mild mitral regurgitation. Moderate pulmonary hypertension. (4) Morbid obesity with BMI of 45.0-49.9, adult Current Visit: Yes Status: Chronic (5) Hyperglycemia Current Visit: Yes Status: Acute Assessment and plan: likely secondary to steroid therapy sliding scale insulin algorithm monitor FS and BG HbA1C: 6.2 - Time Spent With Patient Total time spent is greater than 50% in coordination of care (as documented) at patient's floor/unit and/or counseling patient: - Subjective Interval history: Pt seen and examined with family present at bedside. Pt reports of feeling better. HR better controlled. Pt qualified for home oxygen. child welfare caseworker consulted for arrangement of home oxygen tentative d/c in am. - Constitutional Vitals: Temp Pulse Resp BP Pulse Ox 97.8 F 101 16 123/69 93 08/03/17 11:08 08/03/17 11:08 08/03/17 11:08 08/03/17 11:08 08/03/17 11:08 General appearance: Present: cooperative, A&O X 3, morbidly obese, pleasant, no acute distress - Head Head exam: Present: atraumatic, normocephalic - Eye Eye exam: Present: conjuntiva pink, sclera anicteric - Respiratory Respiratory exam: Absent: respiratory distress, wheezes (decreased breath sounds but improve aeration bilaterally ) - Cardiovascular Cardiovascular exam: Present: irregular rhythm, +S1, +S2, tachycardia - GI/Abdominal GI/Abdominal exam: Present: normal bowel sounds, soft, no peritoneal signs. Absent: distended, tenderness - Extremities Exam Extremities exam: Present: warm, radial pulses palpable and symmetrical. Absent : calf tenderness, tenderness - Neurological Exam Neurological exam: Present: oriented X3 Internal Medicine: Result - Labs CBC & Chem 7: 08/03/17 05:48 08/03/17 05:48 Labs: Short CBC 08/03/17 Range/Units 05:48 WBC 9.7 (4.3-11.1) K/mcL Hgb 11.3 L (11.5-15.4) g/dL Hct 35.7 (35.3-44.9) % Plt Count 108 L (140-400) K/mcL Neutrophils # 8.8 (1.6-8.9) K/mcL BMP 08/03/17 05:48 Sodium 137 Potassium 4.5 Chloride 104 Carbon Dioxide 30 H BUN 33 H Creatinine 0.88 Glucose 347 H Calcium 9.2 - ABG Interpretation ABG results: PT/INR, D-dimer PT 28.2 Seconds (9.4-12.1) H 08/03/17 05:48 Consult Discharge Plan - Plan Referrals: Milton Rodriguez MD [Primary Care Provider] - 08/07/17 2:30 pm (web request 2017)
[2017-08-03] MEDS ORDERED: Insulin LISPRO 300 UNITS/3 ML VIAL SQ SCH (15:24)
[2017-08-03] MEDS ORDERED: *HR* Warfarin 4 MG TABLET PO ONE (18:00)
[2017-08-04] MEDS: Ipratropium/Albuterol Neb 3 ML IH SCH ×4 (04:02→15:32)
[2017-08-04 06:01] LABS: Basophils % 0.2 %; Hematocrit 35.5 % (35.3-44.9); Hemoglobin 11.3 g/dL (11.5-15.4); Immature Granulocytes % 3.1 % (0-4); Lymphocytes # 0.9 K/mcL (0.6-4.6); Lymphocytes % 10.1 %; Mean Corpuscular HGB Conc 31.8 g/dL (31.6-35.5); Mean Corpuscular Hemoglobin 29.6 pg (28.0-33.3); Mean Corpuscular Volume 92.9 fL (83.0-100.0); Mean Platelet Volume 12.5 fL (9.4-12.4); Monocytes # 0.7 K/mcL (0.0-1.3); Monocytes % 7.4 %; Nucleated Red Blood Cells 0.2 /100 WBC (0); Platelet Count 108 K/mcL (140-400); Red Blood Count 3.82 M/mcL (3.82-4.97); Red Cell Distribution Width 14.2 % (11.5-14.5); Segmented Neutrophils % 79.2 %
[2017-08-04 06:02] LABS: INR 2.2
[2017-08-04 06:16] LABS: BUN/Creatinine Ratio 43 (6-26); Blood Urea Nitrogen 35 mg/dL (8-23); Calcium 8.7 mg/dL (8.6-10.3); Carbon Dioxide 25 mEq/L (23-29); Chloride 107 mEq/L (98-107); Glucose 277 mg/dL (70-105); Magnesium 2.1 mg/dL (1.6-2.6); Osmolality,Calculated 304 (280-300); Phosphorous 2.8 mg/dL (2.7-4.5); Potassium 3.8 mEq/L (3.5-5.1); Sodium 138 mEq/L (136-145); eGFR For African Americans > 60 (> 60); eGFR For Non-African Americans > 60 (> 60)
[2017-08-04] MEDS: Budesonide/Formoterol 160/4.5 MDI IH SCH (07:59)
[2017-08-04] MEDS: predniSONE 20 MG TABLET PO SCH (08:10)
[2017-08-04] MEDS: Aspirin 81 MG TAB.CHEW PO SCH (08:11)
[2017-08-04] MEDS: Cyanocobalamin (B-12) 1,000 MCG TABLET PO SCH (08:11)
[2017-08-04] MEDS: Metoprolol XL (24 HR) Succ 50 MG TAB.ER.24H PO SCH (08:12)
[2017-08-04] MEDS: Cholecalciferol (D-3) 1,000 UNIT TABLET PO SCH (08:12)
[2017-08-04] MEDS: Insulin LISPRO 300 UNITS/3 ML VIAL SQ SCH ×2 (08:13→12:08)
[2017-08-04] MEDS ORDERED: levoFLOXacin 750 MG TABLET PO SCH (09:00)
[2017-08-04 10:17] VITALS: BP 145/90
[2017-08-04] MEDS: Diltiazem CD (24hr) 180 MG CAPSULE PO SCH (12:07)
--- NOTE | 2017-08-04 13:20 | Discharge Summary ---
- NOTES TO OUTPATIENT PROVIDER Notes to Outpatient Provider: Pt started on Cardizem 360mg PO qd due to elevated HR. Qualified for home oxygen and is discharged on home oxygen Orders not resulted at time of discharge: Pending orders 08/05/17 04:00 PT/INR [Prothrombin Time INR] [COAG] AM 0400 08/06/17 04:00 PT/INR [Prothrombin Time INR] [COAG] AM 0400 08/07/17 04:00 PT/INR [Prothrombin Time INR] [COAG] AM 0400 08/08/17 04:00 PT/INR [Prothrombin Time INR] [COAG] AM 0400 Date of Encounter: 08/04/17 Time of Encounter: 13:15 - Discharge Diagnosis (1) Atrial fibrillation with RVR Priority: Secondary Status: Acute (2) COPD with exacerbation Priority: Primary Status: Acute (3) Elevated troponin Priority: Primary Status: Acute (4) Morbid obesity with BMI of 45.0-49.9, adult Priority: Secondary Status: Chronic (5) Hyperglycemia Priority: Secondary Status: Acute Comments: pt reported of not taking her home dose of metformin because she did not like the taste it left in her mouth. She states her PCP has reinforced that she needs to take this medications. Pt educated about the benefits and need of this medication. Pt in agreement to be compliant upon discharge with Metformin upon discharge. Hospital course: Ms. Hernandez is a 62 year old female with PMH Of Afib on coumadin, COPD, CAD, DM , HLD, HTN who was admitted for acute respiratory distress secondary to COPD exacerbation. She was found to have elevated TNI and afib with RVR. She reported of being on cardizem and stopped it for unknown reason. She was started on systemic steroids, O2 supplementation, and cardizem. She responded well to therapy. She remained O2 dependent and qualified for home oxygen. Her rate is better controlled and she is currently medically stable for discharge to home with home oxygen and oral steroids. Pt to follow up with PCP, cardiology , and pulmonary after discharge. Pt in agreement to the discharge care and plan. Discharge discussed with: patient, family, nurse, case management - Time Spent with Patient Total time spent providing and/or coordinating discharge services: Greater than 30 minutes - Discharge Medications Prescriptions: Aspirin 81 mg PO DAILY #30 tab.chew Diltiazem CD (24hr) [Cardizem CD] 360 mg PO Q24H #30 cap.er.24h levoFLOXacin [Levaquin] 750 mg PO DAILY #1 tablet predniSONE [PredniSONE] 40 mg PO DAILY #5 tablet Home Medications: Montelukast [Singulair] 10 mg PO HS 01/01/16 [History] Potassium Chloride [K-Tab ER] 20 meq PO DAILY PRN 01/01/16 [History] Albuterol Sulfate [Proair Hfa] 2 puff IH Q4H PRN 06/16/16 [History] Cholecalciferol (Vitamin D3) [Vitamin D3] 5,000 unit PO DAILY 01/26/17 [History] Cyanocobalamin (Vitamin B-12) [Vitamin B12] 1,000 mcg PO DAILY 01/26/17 [History ] Pravastatin Sodium [Pravachol] 40 mg PO DAILY 01/26/17 [History] Budesonide/Formoterol 160/4.5 [Symbicort 160/4.5] 2 puff IH BIDR inhaler [Rx] Fluticasone Propionate Nasal [Flonase] 50 mcg NS DAILY PRN bottle 02/04/17 [Rx] Metoprolol XL (24 HR) Succ [Toprol Xl] 50 mg PO BID tab.er.24h 02/04/17 [Rx] Sertraline [Zoloft] 100 mg PO DAILY tablet 02/04/17 [Rx] Cyclobenzaprine [Flexeril] 10 mg PO TID 07/31/17 [History] Furosemide [Lasix] 40 mg PO DAILY PRN 07/31/17 [History] Meloxicam 15 mg PO DAILY 07/31/17 [History] Warfarin [Coumadin] 7.5 mg PO SUTUWETHFRSA 07/31/17 [History] Aspirin 81 mg PO DAILY #30 tab.chew 08/04/17 [Rx] Diltiazem CD (24hr) [Cardizem CD] 360 mg PO Q24H #30 cap.er.24h 08/04/17 [Rx] Warfarin Sodium 5 mg PO MO #0 08/04/17 [Rx] levoFLOXacin [Levaquin] 750 mg PO DAILY #1 tablet 08/04/17 [Rx] predniSONE [PredniSONE] 40 mg PO DAILY #5 tablet 08/04/17 [Rx] Allergies/Adverse Reactions: 3 Allergy/AdvReac Type Severity Reaction Status Date / Time Banana Allergy Hives Verified 07/31/17 11:34 peanut Allergy Hives Verified 07/31/17 11:34 bismuth subsalicylate AdvReac Vomiting Verified 07/31/17 11:34 [From Pepto-Bismol] codeine AdvReac Drowsy Verified 07/31/17 11:34 Date of admission: 07/31/17 14:45 Primary care physician: Milton Rodriguez MD Discharging clinician: Fe Pride Anticipated date of discharge: 08/04/17 - Constitutional Vitals: Temp Pulse Resp BP Pulse Ox 98.2 F 100 18 145/90 95 08/04/17 10:12 08/04/17 10:12 08/04/17 11:44 08/04/17 10:12 08/04/17 11:44 General appearance: Present: cooperative, A&O X 3, morbidly obese, pleasant, no acute distress - Head Head exam: Present: atraumatic, normocephalic - Eye Eye exam: Present: conjuntiva pink, sclera anicteric - Respiratory Respiratory exam: Absent: respiratory distress, wheezes (equal air entry bilaterally) - Cardiovascular Cardiovascular exam: Present: irregular rhythm, +S1, +S2 - GI/Abdominal GI/Abdominal exam: Present: normal bowel sounds, soft, no peritoneal signs. Absent: distended, tenderness - Extremities Exam Extremities exam: Present: warm, radial pulses palpable and symmetrical. Absent : calf tenderness - Neurological Exam Neurological exam: Present: oriented X3 - Patient Status Disposition: Home, Self-Care Condition: Good Functional capacity at discharge: independent ambulation Overall status at discharge: patient is back to baseline - Discharge Instructions Instructions: Atrial Fibrillation (DC), Chronic Obstructive Pulmonary Disease ( DC) Follow Up With: Milton Rodriguez MD [Primary Care Provider] - 08/07/17 2:30 pm (web request 2017) Idris Mckeon MD [Partnered Physician] - 08/13/17 12:45 pm (Please follow up as ) Tyrell Morataya DO [Partnered Physician] - (office will call the patient for an appointment...) Additional Instructions: Please follow up with your primary care physician within five days after your discharge from the hospital Please follow up with cardiology and pulmonology within one to two weeks after your discharge from the hospital. Your home medications have been changed as follows: 1.Coumadin dose adjusted Coumadin 5mg twice a week and 7.5mg rest of the week 2. cardizem 360mg added to your home meds. 3. Take prednisone 40mg once a day for five more days. 4. Please take Levaquin for one more day 5. Aspirin 81mg added once a day Resume all other home meds as per your PCP wear oxygen therapy at all times - Diet and Activity Activity: increase activity as tolerated, wear oxygen at all times, wear oxygen at night Diet: diabetic diet, low fat, low cholesterol, low salt diet
[2017-08-04] MEDS ORDERED: *HR* Warfarin 5 MG TABLET PO ONE (18:00)
== END 2017-08-04 15:21 | disposition home or self-care (01) ==
LOC: EMEROO 11:27 → 2ANU 11:27
PROVIDERS: ADMIT Internal Medicine; ATTEND Internal Medicine

== ENCOUNTER 2020-10-26 20:16 | Inpatient (IN) ==
[2020-10-26] MEDS ORDERED: methylPREDNISolone 125 MG/2 ML VIAL IVP ONE (20:41)
[2020-10-26] MEDS ORDERED: 0.9 % Sodium Chloride 1,000 ML IVC ONE ×2 (20:41→20:43)
[2020-10-26] MEDS ORDERED: Ipratropium/Albuterol Neb 3 ML IH ONE (20:41)
[2020-10-26] MEDS ORDERED: levoFLOXacin 750 MG TABLET PO ONE (20:41)
[2020-10-26 21:39] LABS: Hemoglobin 14.3 g/dL (11.5-15.4); Mean Corpuscular Hemoglobin 29.4 pg (28.0-33.3)
[2020-10-26 21:41] LABS: Basophils # 0.1 K/mcL (0.0-0.2); Basophils % 0.7 %; Eosinophils # 0.1 K/mcL (0.0-0.6); Eosinophils % 0.7 %; Hematocrit 44.4 % (35.3-44.9); Immature Granulocytes % 0.4 % (0-4); Lymphocytes # 1.1 K/mcL (0.6-4.6); Lymphocytes % 15.2 %; Mean Corpuscular HGB Conc 32.2 g/dL (31.6-35.5); Mean Corpuscular Volume 91.4 fL (83.0-100.0); Mean Platelet Volume 13.2 fL (9.4-12.4); Monocytes # 0.5 K/mcL (0.0-1.3); Neutrophils # 5.4 K/mcL (1.6-8.9); Platelet Count 103 K/mcL (140-400); Red Blood Count 4.86 M/mcL (3.82-4.97); White Blood Count 7.1 K/mcL (4.3-11.1)
[2020-10-26 21:45] LABS: Bilirubin,Urine Negative (Negative); Blood,Urine Negative (Negative); Clarity,Urine Clear (Clear); Color,Urine Colorless (Yellow); Glucose,Urine (UA) >=1000 mg/dL (Normal); Ketones,Urine 20 mg/dL (Negative); Leukocyte Esterase,Urine Negative (Negative); Mucus,Urine Few per lpf (None-Few); Nitrite,Urine Negative (Negative); Protein,Urine Negative (Neg-Trace); RBC,Urine 0-3 per hpf (0-3); Specific Gravity,Urine > 1.030 (1.010-1.025); Squamous Epithelial Cell,Urine Few per hpf (None-Few); Urobilinogen,Urine Normal (Normal); WBC,Urine 0-3 per hpf (0-3)
[2020-10-26 21:47] LABS: INR 2.3; Prothrombin Time 26.2 Seconds (9.4-12.1)
[2020-10-26 21:49] LABS: Activated Partial Thrombo Time 35.5 Seconds (26.0-36.0)
[2020-10-26] MEDS: DilTIAZem 50 MG/50 ML IV.SOLN IVC SCH (21:53)
[2020-10-26 21:59] LABS: BUN/Creatinine Ratio 20 (6-26); Blood Urea Nitrogen 20 mg/dL (8-23); Calcium 9.4 mg/dL (8.6-10.3); Carbon Dioxide 23 mEq/L (23-29); Chloride 95 mEq/L (98-107); Glucose 533 mg/dL (70-105); Osmolality,Calculated 303 (280-300); Potassium 4.5 mEq/L (3.5-5.1); Sodium 133 mEq/L (136-145); eGFR For African Americans > 60 (> 60); eGFR For Non-African Americans 56 (> 60)
[2020-10-26] MEDS ORDERED: Ringers Solution, Lactated 1,000 ML IVC ONE (22:09)
[2020-10-26 22:24] LABS: VBG HCO3 25 mEq/L (21-27); VBG PCO2 39 mmHg (41-51); VBG PH 7.41 pH Units (7.32-7.42); VBG PO2 68 mmHg (25-50)
[2020-10-26 22:32] LABS: Thyroid Stimulating Hormone 1.591 mcIU/mL (0.340-5.600); Troponin I 0.07 ng/mL (< 0.04)
[2020-10-26] MEDS ORDERED: Insulin Regular, Human 100 UNIT/ML SUBQ ONE (23:30)
[2020-10-26] MEDS ORDERED: Aspirin 81 MG TAB.CHEW PO ONE (23:45)
[2020-10-27] MEDS ORDERED: Naloxone 0.4 MG/ML INJ IVP PRN (00:07)
[2020-10-27] MEDS ORDERED: Ondansetron 4 MG/2 ML VIAL IVP PRN (01:11)
[2020-10-27] MEDS ORDERED: Acetaminophen 325 MG TABLET PO PRN (01:11)
[2020-10-27] MEDS ORDERED: D5% in Water 1,000 ML IVC PRN (01:13)
[2020-10-27] MEDS ORDERED: Dextrose Gel 15 GM/37.5 ML TUBE PO PRN ×2 (01:13)
[2020-10-27] MEDS ORDERED: *HR* Dextrose 50 % in Water (Vial) 50 ML VIAL IVP PRN (01:13)
[2020-10-27] MEDS ORDERED: Ipratropium/Albuterol Neb 3 ML IH PRN (01:14)
[2020-10-27] MEDS: DilTIAZem 50 MG/50 ML IV.SOLN IVC SCH ×3 (02:02→12:09)
[2020-10-27] MEDS ORDERED: Perflutren Lipid Microsphere 1.3 ML in 0.9 % Sodium Chloride 8.7 ML IVP PRN (02:14)
[2020-10-27] MEDS ORDERED: Furosemide 40 MG/4 ML VIAL IVP ONE (02:39)
[2020-10-27] MEDS: Insulin LISPRO 300 UNITS/3 ML VIAL SUBQ SCH ×6 (03:34→19:42)
[2020-10-27] MEDS ORDERED: Levalbuterol 1 PUFF INHALER IH SCH (04:00)
[2020-10-27 04:25] LABS: Alanine Aminotransferase 18 Units/L (7-52); Albumin 3.9 g/dL (3.5-5.7); Albumin/Globulin Ratio 1.3 (1.1-2.2); Alkaline Phosphatase 53 Units/L (34-104); Aspartate Amino Transferase 15 Units/L (13-39); BUN/Creatinine Ratio 21 (6-26); Bilirubin,Total 1.1 mg/dL (0.3-1.0); Blood Urea Nitrogen 17 mg/dL (8-23); Calcium 8.6 mg/dL (8.6-10.3); Carbon Dioxide 21 mEq/L (23-29); Chloride 99 mEq/L (98-107); Glucose 430 mg/dL (70-105); Magnesium 1.8 mg/dL (1.6-2.6); Osmolality,Calculated 302 (280-300); Sodium 136 mEq/L (136-145); Total Protein 6.9 g/dL (6.4-8.9); eGFR For African Americans > 60 (> 60); eGFR For Non-African Americans > 60 (> 60)
[2020-10-27 04:27] LABS: Basophils % 0.4 %; Hematocrit 42.2 % (35.3-44.9); Hemoglobin 13.6 g/dL (11.5-15.4); Immature Granulocytes % 0.7 % (0-4); Immature Platelets 17.8 % (1.1-6.1); Lymphocytes # 0.4 K/mcL (0.6-4.6); Lymphocytes % 7.7 %; Mean Corpuscular HGB Conc 32.2 g/dL (31.6-35.5); Mean Corpuscular Hemoglobin 29.6 pg (28.0-33.3); Mean Corpuscular Volume 91.7 fL (83.0-100.0); Mean Platelet Volume 12.9 fL (9.4-12.4); Monocytes # 0.1 K/mcL (0.0-1.3); Monocytes % 1.8 %; Neutrophils # 5.1 K/mcL (1.6-8.9); Red Cell Distribution Width 13.1 % (11.5-14.5); Segmented Neutrophils % 89.4 %; White Blood Count 5.7 K/mcL (4.3-11.1)
[2020-10-27 04:29] LABS: INR 2.3; Prothrombin Time 26.3 Seconds (9.4-12.1)
[2020-10-27 04:39] LABS: Platelet Count 86 K/mcL (140-400)
[2020-10-27] MEDS ORDERED: Insulin LISPRO 300 UNITS/3 ML VIAL SUBQ SCH (06:00)
[2020-10-27] MEDS ORDERED: Insulin LISPRO 300 UNITS/3 ML VIAL SUBQ ONE ×2 (07:50→17:01)
[2020-10-27] MEDS: Metoprolol XL (24 HR) Succ 50 MG TAB.ER.24H PO SCH ×2 (08:44→19:43)
[2020-10-27] MEDS: Cholecalciferol (D-3) 1,000 UNIT (25MCG) TABLET PO SCH (08:44)
[2020-10-27] MEDS: DilTIAZem CD (24hr) 240 MG CAP.ER.24H PO SCH (08:45)
[2020-10-27] MEDS: Cyanocobalamin (B-12) 1,000 MCG TABLET PO SCH (08:47)
[2020-10-27] MEDS: Tiotropium 10 INH DOSE IH SCH (10:31)
[2020-10-27] MEDS: Budesonide/Formoterol 160/4.5 1 PUFF INH IH SCH ×2 (10:31→21:44)
[2020-10-27] MEDS: Levalbuterol Neb 1.25 MG/3 ML IH SCH ×3 (10:31→21:44)
[2020-10-27] MEDS: MethylPREDNISolone 40 MG/ML VIAL IVP SCH ×2 (11:08→21:32)
[2020-10-27] MEDS ORDERED: Insulin DETEMIR 100 UNIT/ML X5UNITS SUBQ ONE (11:38)
[2020-10-27] MEDS: Furosemide 40 MG/4 ML VIAL IVP SCH (12:04)
[2020-10-27] MEDS ORDERED: *HR* Warfarin 7.5 MG TABLET PO ONE (18:00)
[2020-10-27] MEDS ORDERED: Warfarin perPT PO PRN (18:00)
[2020-10-27] MEDS: levoFLOXacin 500 MG/100 ML 500 MG/100 ML BAG IVPB SCH (19:40)
[2020-10-27] MEDS ORDERED: Insulin DETEMIR 100 UNIT/ML X5UNITS SUBQ SCH (21:00)
[2020-10-28 02:39] LABS: Basophils % 0.1 %; Red Cell Distribution Width 13.2 % (11.5-14.5)
[2020-10-28 02:41] LABS: Hematocrit 39.8 % (35.3-44.9); Hemoglobin 12.7 g/dL (11.5-15.4); Immature Granulocytes % 0.8 % (0-4); Immature Platelets 16.5 % (1.1-6.1); Lymphocytes # 0.5 K/mcL (0.6-4.6); Lymphocytes % 5.9 %; Mean Corpuscular HGB Conc 31.9 g/dL (31.6-35.5); Mean Corpuscular Hemoglobin 29.7 pg (28.0-33.3); Mean Corpuscular Volume 93.2 fL (83.0-100.0); Mean Platelet Volume 13.4 fL (9.4-12.4); Monocytes # 0.2 K/mcL (0.0-1.3); Monocytes % 2.8 %; Platelet Count 106 K/mcL (140-400); Red Blood Count 4.27 M/mcL (3.82-4.97); Segmented Neutrophils % 90.4 %; White Blood Count 7.8 K/mcL (4.3-11.1)
[2020-10-28 02:43] LABS: Neutrophils # 7.1 K/mcL (1.6-8.9)
[2020-10-28 02:45] LABS: Prothrombin Time 22.8 Seconds (9.4-12.1)
[2020-10-28 03:16] LABS: BUN/Creatinine Ratio 34 (6-26); Blood Urea Nitrogen 31 mg/dL (8-23); Calcium 8.6 mg/dL (8.6-10.3); Carbon Dioxide 25 mEq/L (23-29); Chloride 96 mEq/L (98-107); Glucose 543 mg/dL (70-105); Osmolality,Calculated 309 (280-300); Potassium 4.4 mEq/L (3.5-5.1); Sodium 134 mEq/L (136-145); eGFR For African Americans > 60 (> 60); eGFR For Non-African Americans > 60 (> 60)
[2020-10-28] MEDS ORDERED: Insulin LISPRO 300 UNITS/3 ML VIAL SUBQ STA (03:38)
[2020-10-28] MEDS: Levalbuterol Neb 1.25 MG/3 ML IH SCH ×4 (04:24→21:34)
[2020-10-28 05:54] LABS: ABG Base Excess 2 mEq/L (-2 to 3); ABG HCO3 27 mEq/L (21-27); ABG Oxygen Saturation 89 % (95-98); ABG PCO2 43 mmHg (35-45); ABG PO2 56 mmHg (85-104); ABG TCO2 28 mEq/L (20-26)
[2020-10-28] MEDS: Furosemide 40 MG/4 ML VIAL IVP SCH (08:49)
[2020-10-28] MEDS: Cyanocobalamin (B-12) 1,000 MCG TABLET PO SCH (08:49)
[2020-10-28] MEDS: Cholecalciferol (D-3) 1,000 UNIT (25MCG) TABLET PO SCH (08:49)
[2020-10-28] MEDS: DilTIAZem CD (24hr) 240 MG CAP.ER.24H PO SCH (08:49)
[2020-10-28] MEDS: Metoprolol XL (24 HR) Succ 50 MG TAB.ER.24H PO SCH ×2 (08:49→21:03)
[2020-10-28] MEDS: Insulin DETEMIR 100 UNIT/ML X5UNITS SUBQ SCH ×2 (08:50→21:04)
[2020-10-28] MEDS: Insulin LISPRO 300 UNITS/3 ML VIAL SUBQ SCH ×4 (08:50→21:05)
[2020-10-28] MEDS: MethylPREDNISolone 40 MG/ML VIAL IVP SCH (08:50)
[2020-10-28] MEDS: Tiotropium 10 INH DOSE IH SCH (10:48)
[2020-10-28] MEDS: Budesonide/Formoterol 160/4.5 1 PUFF INH IH SCH ×2 (10:48→21:35)
[2020-10-28] MEDS ORDERED: Insulin LISPRO 300 UNITS/3 ML VIAL SUBQ ONE (11:05)
[2020-10-28] MEDS ORDERED: Insulin DETEMIR 100 UNIT/ML X5UNITS SUBQ ONE (11:20)
[2020-10-28] MEDS ORDERED: *HR* Warfarin 7.5 MG TABLET PO ONE (18:00)
[2020-10-28] MEDS: levoFLOXacin 500 MG/100 ML 500 MG/100 ML BAG IVPB SCH (21:04)
[2020-10-29] MEDS: Levalbuterol Neb 1.25 MG/3 ML IH SCH ×4 (03:50→22:03)
[2020-10-29 05:37] LABS: Hematocrit 41.9 % (35.3-44.9); Hemoglobin 13.7 g/dL (11.5-15.4); Mean Corpuscular HGB Conc 32.7 g/dL (31.6-35.5); Mean Corpuscular Hemoglobin 29.9 pg (28.0-33.3); Mean Corpuscular Volume 91.5 fL (83.0-100.0); Mean Platelet Volume 12.7 fL (9.4-12.4); Platelet Count 125 K/mcL (140-400); Red Blood Count 4.58 M/mcL (3.82-4.97); Red Cell Distribution Width 13.2 % (11.5-14.5); White Blood Count 10.9 K/mcL (4.3-11.1)
[2020-10-29 05:40] LABS: INR 2.6; Prothrombin Time 29.7 Seconds (9.4-12.1)
[2020-10-29 05:53] LABS: BUN/Creatinine Ratio 41 (6-26); Blood Urea Nitrogen 41 mg/dL (8-23); Calcium 9.1 mg/dL (8.6-10.3); Carbon Dioxide 26 mEq/L (23-29); Chloride 93 mEq/L (98-107); Glucose 418 mg/dL (70-105); Osmolality,Calculated 310 (280-300); Potassium 3.6 mEq/L (3.5-5.1); Sodium 136 mEq/L (136-145); eGFR For African Americans > 60 (> 60); eGFR For Non-African Americans 55 (> 60)
[2020-10-29] MEDS: Tiotropium 10 INH DOSE IH SCH (07:36)
[2020-10-29] MEDS: Budesonide/Formoterol 160/4.5 1 PUFF INH IH SCH ×2 (07:36→22:03)
[2020-10-29] MEDS: Insulin LISPRO 300 UNITS/3 ML VIAL SUBQ SCH ×6 (07:41→20:56)
[2020-10-29] MEDS: predniSONE 20 MG TABLET PO SCH (07:42)
[2020-10-29] MEDS: Cyanocobalamin (B-12) 1,000 MCG TABLET PO SCH (07:42)
[2020-10-29] MEDS: Cholecalciferol (D-3) 1,000 UNIT (25MCG) TABLET PO SCH (07:42)
[2020-10-29] MEDS: DilTIAZem CD (24hr) 240 MG CAP.ER.24H PO SCH (07:42)
[2020-10-29] MEDS: Metoprolol XL (24 HR) Succ 50 MG TAB.ER.24H PO SCH (07:42)
[2020-10-29] MEDS ORDERED: Insulin DETEMIR 100 UNIT/ML X5UNITS SUBQ SCH ×2 (09:00→21:00)
[2020-10-29] MEDS ORDERED: DilTIAZem SR (12hr) 60 MG CAP.ER.12H PO ONE (17:00)
[2020-10-29] MEDS ORDERED: *HR* Warfarin 5 MG TABLET PO ONE (18:00)
[2020-10-29] MEDS: Metoprolol 100 MG TABLET PO SCH (20:54)
[2020-10-29] MEDS ORDERED: levoFLOXacin 500 MG TABLET PO SCH (21:00)
[2020-10-30 01:31] LABS: INR 3.3; Prothrombin Time 37.2 Seconds (9.4-12.1)
[2020-10-30] MEDS: Levalbuterol Neb 1.25 MG/3 ML IH SCH ×3 (03:41→15:48)
[2020-10-30] MEDS ORDERED: Insulin DETEMIR 100 UNIT/ML X5UNITS SUBQ SCH (09:00)
[2020-10-30] MEDS ORDERED: DilTIAZem CD (24hr) 300 MG CAP.ER.24H PO SCH (09:00)
[2020-10-30] MEDS: Insulin LISPRO 300 UNITS/3 ML VIAL SUBQ SCH ×4 (09:57→11:36)
[2020-10-30] MEDS: predniSONE 20 MG TABLET PO SCH (09:59)
[2020-10-30] MEDS: Cholecalciferol (D-3) 1,000 UNIT (25MCG) TABLET PO SCH (09:59)
[2020-10-30] MEDS: Metoprolol 100 MG TABLET PO SCH (10:00)
[2020-10-30] MEDS: Cyanocobalamin (B-12) 1,000 MCG TABLET PO SCH (10:01)
[2020-10-30] MEDS: Budesonide/Formoterol 160/4.5 1 PUFF INH IH SCH (10:17)
[2020-10-30] MEDS: Tiotropium 10 INH DOSE IH SCH (10:17)
[2020-10-30 10:23] LABS: Basophils # 0.1 K/mcL (0.0-0.2); Basophils % 0.6 %; Eosinophils % 0.3 %; Hematocrit 46.3 % (35.3-44.9); Hemoglobin 14.5 g/dL (11.5-15.4); Immature Granulocytes % 1.4 % (0-4); Lymphocytes # 2.4 K/mcL (0.6-4.6); Lymphocytes % 27.7 %; Mean Corpuscular HGB Conc 31.3 g/dL (31.6-35.5); Mean Corpuscular Hemoglobin 29.1 pg (28.0-33.3); Mean Corpuscular Volume 92.8 fL (83.0-100.0); Mean Platelet Volume 12.7 fL (9.4-12.4); Monocytes # 0.8 K/mcL (0.0-1.3); Monocytes % 9.2 %; Neutrophils # 5.4 K/mcL (1.6-8.9); Platelet Count 152 K/mcL (140-400); Red Blood Count 4.99 M/mcL (3.82-4.97); Red Cell Distribution Width 13.2 % (11.5-14.5); Segmented Neutrophils % 60.8 %; White Blood Count 8.8 K/mcL (4.3-11.1)
[2020-10-30 10:39] LABS: BUN/Creatinine Ratio 31 (6-26); Blood Urea Nitrogen 33 mg/dL (8-23); Calcium 8.7 mg/dL (8.6-10.3); Carbon Dioxide 26 mEq/L (23-29); Chloride 102 mEq/L (98-107); Glucose 310 mg/dL (70-105); Osmolality,Calculated 303 (280-300); Potassium 3.6 mEq/L (3.5-5.1); Sodium 137 mEq/L (136-145); eGFR For African Americans > 60 (> 60); eGFR For Non-African Americans 52 (> 60)
[2020-10-30 13:53] LABS: Estimated Average Glucose 329 mg/dl; Hemoglobin A1C 13.1 %
[2020-10-30] MEDS ORDERED: levoFLOXacin 500 MG TABLET PO ONE (15:35)
[2020-10-30 15:40] VITALS: BP 97/60
== END 2020-10-30 17:00 | disposition home or self-care (01) | DRG 280 ==
LOC: EMEROOARM 20:16 → 2ANU 20:16 → SUATTDRO 23:42 → 2ANU 10-27 01:02
PROVIDERS: ADMIT Student in an Organized Health Care Education/Training Program; ATTEND Family Medicine

== ENCOUNTER 2021-08-18 08:19 | Inpatient (IN) ==
[2021-08-18 09:13] LABS: Basophils # 0.1 K/mcL (0.0-0.2); Basophils % 0.8 %; Eosinophils # 0.2 K/mcL (0.0-0.6); Eosinophils % 2.4 %; Hematocrit 40.3 % (35.3-44.9); Hemoglobin 12.8 g/dL (11.5-15.4); Immature Granulocytes % 0.9 % (0-4); Lymphocytes # 1.2 K/mcL (0.6-4.6); Lymphocytes % 15.2 %; Mean Corpuscular HGB Conc 31.8 g/dL (31.6-35.5); Mean Corpuscular Hemoglobin 29.4 pg (28.0-33.3); Mean Corpuscular Volume 92.6 fL (83.0-100.0); Mean Platelet Volume 11.5 fL (9.4-12.4); Monocytes # 0.6 K/mcL (0.0-1.3); Neutrophils # 5.7 K/mcL (1.6-8.9); Platelet Count 177 K/mcL (140-400); Red Blood Count 4.35 M/mcL (3.82-4.97); Red Cell Distribution Width 13.4 % (11.5-14.5); Segmented Neutrophils % 72.7 %; White Blood Count 7.8 K/mcL (4.3-11.1)
[2021-08-18 09:42] LABS: Alanine Aminotransferase 15 Units/L (7-52); Albumin/Globulin Ratio 1.3 (1.1-2.2); Alkaline Phosphatase 72 Units/L (34-104); Aspartate Amino Transferase 14 Units/L (13-39); BUN/Creatinine Ratio 24 (6-26); Bilirubin,Direct 0.2 mg/dL (0.0-0.2); Bilirubin,Indirect 1.4 mg/dL (0.0-1.0); Bilirubin,Total 1.6 mg/dL (0.3-1.0); Blood Urea Nitrogen 22 mg/dL (8-23); Calcium 9.3 mg/dL (8.6-10.3); Carbon Dioxide 27 mEq/L (23-29); Chloride 105 mEq/L (98-107); Glucose 157 mg/dL (70-105); Osmolality,Calculated 295 (280-300); Potassium 4.1 mEq/L (3.5-5.1); Sodium 139 mEq/L (136-145); Troponin I 0.06 ng/mL (< 0.04); eGFR For African Americans > 60 (> 60); eGFR For Non-African Americans > 60 (> 60)
[2021-08-18] MEDS ORDERED: Furosemide 20 MG/2 ML VIAL IVP ONE ×2 (09:45→10:01)
[2021-08-18] MEDS ORDERED: Naloxone 0.4 MG/ML INJ IVP PRN (10:48)
[2021-08-18] MEDS ORDERED: Acetaminophen 325 MG TABLET PO PRN (10:48)
[2021-08-18] MEDS ORDERED: Perflutren Lipid Microsphere 1.3 ML in 0.9 % Sodium Chloride 8.7 ML IVP PRN (11:09)
[2021-08-18] MEDS ORDERED: *HR* Dextrose 50 % in Water (Syg) 50 ML SYRINGE IVP PRN (11:13)
[2021-08-18] MEDS ORDERED: Dextrose 4 GM Chewable Tablets PO PRN ×2 (11:13)
[2021-08-18] MEDS ORDERED: D5% in Water 1,000 ML IVC PRN (11:13)
[2021-08-18 11:38] LABS: Estimated Average Glucose 151 mg/dl; Hemoglobin A1C 6.9 %
[2021-08-18 11:38] LABS: Adenovirus Not Detected (Not Detect); Bordetella Pertussis Not Detected (Not Detect); Chlamydophila pneumoniae Not Detected (Not Detect); Coronavirus 229E Not Detected (Not Detect); Coronavirus HKU1 Not Detected (Not Detect); Coronavirus NL63 Not Detected (Not Detect); Coronavirus OC43 Not Detected (Not Detect); Human Metapneumovirus Not Detected (Not Detect); Human Rhinovirus/Enterovirus Not Detected (Not Detect); Influenza A Subtype 2009 H1 Not Detected (Not Detect); Influenza B Not Detected (Not Detect); Mycoplasma pneumoniae Not Detected (Not Detect); Parainfluenza Virus 1 Not Detected (Not Detect); Parainfluenza Virus 2 Not Detected (Not Detect); Parainfluenza Virus 3 Not Detected (Not Detect); Parainfluenza Virus 4 Not Detected (Not Detect); Respiratory Syncytial Virus Not Detected (Not Detect); SARS-CoV-2 Not Detected (Not Detect)
[2021-08-18] MEDS: Insulin LISPRO 300 UNITS/3 ML VIAL SUBQ SCH ×2 (12:47→17:01)
[2021-08-18 13:09] LABS: Bilirubin,Urine Negative (Negative); Blood,Urine Negative (Negative); Clarity,Urine Clear (Clear); Color,Urine Colorless (Yellow); Glucose,Urine (UA) Normal (Normal); Ketones,Urine Negative (Negative); Leukocyte Esterase,Urine Negative (Negative); Nitrite,Urine Negative (Negative); Protein,Urine Negative (Neg-Trace); Specific Gravity,Urine 1.007 (1.010-1.025); Urobilinogen,Urine Normal (Normal)
[2021-08-18] MEDS ORDERED: *HR* Heparin 5,000 UNIT/ML VIAL IVP PRN ×2 (15:34)
[2021-08-18] MEDS ORDERED: Isovue-370 500 ML BOTTLE IVP ONE (15:34)
[2021-08-18] MEDS ORDERED: *HR* Heparin 5,000 UNIT/ML VIAL IVP ONE (15:34)
[2021-08-18 16:53] LABS: Hematocrit 38.4 % (35.3-44.9); Hemoglobin 12.6 g/dL (11.5-15.4); Mean Corpuscular HGB Conc 32.8 g/dL (31.6-35.5); Mean Corpuscular Hemoglobin 30.1 pg (28.0-33.3); Mean Corpuscular Volume 91.6 fL (83.0-100.0); Mean Platelet Volume 11.8 fL (9.4-12.4); Platelet Count 193 K/mcL (140-400); Red Blood Count 4.19 M/mcL (3.82-4.97); Red Cell Distribution Width 13.3 % (11.5-14.5); White Blood Count 7.2 K/mcL (4.3-11.1)
[2021-08-18] MEDS: Heparin 25,000UNIT/250ML 1/2NS 25,000 UNIT/250 ML IV.SOLN IVC SCH (16:59)
[2021-08-18] MEDS: Furosemide 40 MG/4 ML VIAL IVP SCH (17:01)
[2021-08-18 17:03] LABS: Heparin anti-factor XA UFH < 0.04 IU/mL (0.30-0.70); INR 1.6; Prothrombin Time 17.5 Seconds (9.4-12.1)
[2021-08-18] MEDS ORDERED: Diphenoxylate/Atropine 1 TAB TABLET PO PRN (17:21)
[2021-08-18] MEDS: Insulin DETEMIR 100 UNIT/ML X5UNITS SUBQ SCH (21:24)
[2021-08-18] MEDS ORDERED: tiZANidine 4 MG TABLET PO ONE (21:26)
[2021-08-18] MEDS ORDERED: Melatonin 3 MG TABLET PO ONE (21:27)
[2021-08-19 03:30] LABS: Basophils # 0.1 K/mcL (0.0-0.2); Basophils % 0.7 %; Eosinophils # 0.2 K/mcL (0.0-0.6); Eosinophils % 1.9 %; Hematocrit 38.3 % (35.3-44.9); Hemoglobin 12.5 g/dL (11.5-15.4); Immature Granulocytes % 0.9 % (0-4); Lymphocytes # 1.6 K/mcL (0.6-4.6); Lymphocytes % 18.3 %; Mean Corpuscular HGB Conc 32.6 g/dL (31.6-35.5); Mean Corpuscular Hemoglobin 29.7 pg (28.0-33.3); Mean Platelet Volume 12.2 fL (9.4-12.4); Monocytes # 0.7 K/mcL (0.0-1.3); Monocytes % 8.2 %; Platelet Count 180 K/mcL (140-400); Red Blood Count 4.21 M/mcL (3.82-4.97); Red Cell Distribution Width 13.5 % (11.5-14.5); White Blood Count 8.5 K/mcL (4.3-11.1)
[2021-08-19 05:27] LABS: BUN/Creatinine Ratio 24 (6-26); Blood Urea Nitrogen 24 mg/dL (8-23); Calcium 9.4 mg/dL (8.6-10.3); Carbon Dioxide 28 mEq/L (23-29); Chloride 99 mEq/L (98-107); Glucose 155 mg/dL (70-105); Osmolality,Calculated 291 (280-300); Potassium 3.8 mEq/L (3.5-5.1); Sodium 137 mEq/L (136-145); eGFR For African Americans > 60 (> 60); eGFR For Non-African Americans 55 (> 60)
[2021-08-19] MEDS: Furosemide 40 MG/4 ML VIAL IVP SCH ×2 (08:07→16:36)
[2021-08-19] MEDS: Insulin LISPRO 300 UNITS/3 ML VIAL SUBQ SCH ×3 (08:07→16:55)
[2021-08-19] MEDS: DilTIAZem CD (24hr) 240 MG CAP.ER.24H PO SCH (10:19)
[2021-08-19] MEDS: Metoprolol 100 MG TABLET PO SCH ×2 (10:19→22:06)
[2021-08-19] MEDS: Heparin 25,000UNIT/250ML 1/2NS 25,000 UNIT/250 ML IV.SOLN IVC SCH (11:21)
[2021-08-19 14:41] LABS: INR 1.7; Prothrombin Time 18.4 Seconds (9.4-12.1)
[2021-08-19] MEDS ORDERED: Warfarin perPT PO PRN (18:00)
[2021-08-19] MEDS ORDERED: *HR* Warfarin 10 MG TABLET PO ONE (18:00)
[2021-08-19] MEDS: Insulin DETEMIR 100 UNIT/ML X5UNITS SUBQ SCH (22:07)
[2021-08-19] MEDS ORDERED: tiZANidine 4 MG TABLET PO ONE (22:18)
[2021-08-19] MEDS ORDERED: Melatonin 3 MG TABLET PO PRN (22:19)
[2021-08-20 05:00] LABS: INR 1.6; Prothrombin Time 17.4 Seconds (9.4-12.1)
[2021-08-20 05:32] LABS: Calcium 9.2 mg/dL (8.6-10.3); Magnesium 2.1 mg/dL (1.6-2.6); Phosphorous 4.4 mg/dL (2.7-4.5); Potassium 3.9 mEq/L (3.5-5.1)
[2021-08-20] MEDS: Insulin LISPRO 300 UNITS/3 ML VIAL SUBQ SCH ×3 (07:34→16:12)
[2021-08-20] MEDS: Cyanocobalamin (B-12) 1,000 MCG TABLET PO SCH (08:56)
[2021-08-20] MEDS: Metoprolol 100 MG TABLET PO SCH ×2 (08:56→20:20)
[2021-08-20] MEDS: Albumin 25% 25gram/100mL 25 GM/100 ML IV.SOLN IVPB SCH ×2 (08:56→16:23)
[2021-08-20] MEDS: DilTIAZem CD (24hr) 240 MG CAP.ER.24H PO SCH (08:56)
[2021-08-20] MEDS: Insulin DETEMIR 100 UNIT/ML X5UNITS SUBQ SCH ×2 (08:57→20:21)
[2021-08-20] MEDS ORDERED: Furosemide 40 MG TABLET PO ONE (09:57)
[2021-08-20] MEDS: Heparin 25,000UNIT/250ML 1/2NS 25,000 UNIT/250 ML IV.SOLN IVC SCH ×2 (10:24→17:24)
[2021-08-20] MEDS: Tiotropium 10 INH DOSE IH SCH (10:49)
[2021-08-20] MEDS: Budesonide/Formoterol 160/4.5 1 PUFF INH IH SCH ×2 (10:49→20:10)
[2021-08-20] MEDS ORDERED: *HR* Warfarin 7.5 MG TABLET PO ONE (18:00)
[2021-08-21] MEDS: Albumin 25% 25gram/100mL 25 GM/100 ML IV.SOLN IVPB SCH (00:19)
[2021-08-21 05:10] LABS: INR 1.9; Prothrombin Time 21.1 Seconds (9.4-12.1)
[2021-08-21 05:19] LABS: BUN/Creatinine Ratio 36 (6-26); Blood Urea Nitrogen 34 mg/dL (8-23); Calcium 9.4 mg/dL (8.6-10.3); Carbon Dioxide 28 mEq/L (23-29); Chloride 103 mEq/L (98-107); Glucose 186 mg/dL (70-105); Magnesium 2.1 mg/dL (1.6-2.6); Osmolality,Calculated 298 (280-300); Phosphorous 3.2 mg/dL (2.7-4.5); Potassium 3.6 mEq/L (3.5-5.1); Sodium 138 mEq/L (136-145); eGFR For African Americans > 60 (> 60); eGFR For Non-African Americans 59 (> 60)
[2021-08-21] MEDS: Tiotropium 10 INH DOSE IH SCH (07:33)
[2021-08-21] MEDS: Budesonide/Formoterol 160/4.5 1 PUFF INH IH SCH (07:34)
[2021-08-21] MEDS: Metoprolol 100 MG TABLET PO SCH (07:49)
[2021-08-21] MEDS: Insulin LISPRO 300 UNITS/3 ML VIAL SUBQ SCH ×2 (07:50→11:43)
[2021-08-21] MEDS: Insulin DETEMIR 100 UNIT/ML X5UNITS SUBQ SCH (07:50)
[2021-08-21] MEDS: DilTIAZem CD (24hr) 240 MG CAP.ER.24H PO SCH (07:50)
[2021-08-21] MEDS: Cyanocobalamin (B-12) 1,000 MCG TABLET PO SCH (07:50)
[2021-08-21] MEDS: Heparin 25,000UNIT/250ML 1/2NS 25,000 UNIT/250 ML IV.SOLN IVC SCH (10:29)
[2021-08-21 11:30] VITALS: BP 123/64; PULSE 93; TEMP 98.9; O2SAT 93
[2021-08-21] MEDS ORDERED: *HR* Warfarin 10 MG TABLET PO ONE (18:00)
== END 2021-08-21 15:42 | disposition home or self-care (01) | DRG 280 ==
LOC: 3BNU 08:19 → EMEROOARM 08:19 → SUATTDRO 10:31 → 3BNU 11:34 → SUATTDRO 08-20 07:27
PROVIDERS: ADMIT Internal Medicine; ATTEND Internal Medicine